=== PATIENT | male | born 1965 | race Caucasian/White ===

== ENCOUNTER 2017-10-16 18:24 | Inpatient (IN) ==
[2017-10-16] MEDS ORDERED: Ondansetron 4 MG/2 ML VIAL IVP ONE (19:18)
[2017-10-16] MEDS ORDERED: 0.9 % Sodium Chloride 1,000 ML IVC ONE ×2 (19:18→19:44)
[2017-10-16] MEDS ORDERED: *HR* HYDROmorphone (PF) 1 MG/ML SYRINGE IVP ONE (19:18)
--- NOTE | 2017-10-16 19:23 | Emergency Department Note ---
Disposition Clinical Impression: Diverticulitis Disposition: Admitted As Inpatient Condition: Good Abdominal Pain HPI - General Chief Complaint: ED Abdominal Pain Stated Complaint: diverticulitis per CT/abd pain/NVD/fevers Time Seen by Provider: 10/16/17 19:02 Source: patient Mode of arrival: ambulatory Limitations: no limitations Nursing Notes Reviewed: Yes Vital Signs Reviewed: Yes - History of Present Illness HPI Narrative: Patient presents for evaluation of abdominal pain. Patient had an outpatient CT scan earlier today showing diverticulitis with perforation and contained abscess. Patient's symptoms started approximately one month ago. Patient has had waxing and waning pain to the lower abdomen. Intermittent episodes of dysuria. Symptoms been progressively worse over the last few days with outpatient physician ordering CT. Patient was notified of CT results and told to come to the emergency department. Pain Scale: 5 - Related Data Previous Rx's Medication Instructions Recorded Acetaminophen w/Cod 300-30 mg 1 each PO Q8HR #20 tablet 01/21/16 [Tylenol w/Codeine #3] Magic Mouthwash [Magic Mouthwash 10 ml PO QID PRN #240 ml 01/21/16 BLM] cephALEXin [Keflex Susp] 10 ml PO Q6HR #400 bottle 01/21/16 Allergies Allergy/AdvReac Type Severity Reaction Status Date / Time No Known Allergies Allergy Verified 10/16/17 18:30 All systems ED: reviewed and negative except as stated. Constitutional: Reports: fever, chills Gastrointestinal: Reports: nausea, constipation. Denies: vomiting Genitourinary: Reports: dysuria Endocrine: Denies: fatigue Abdominal Pain PMH - Past Medical History Medical history: Reports: fibromyalgia, hypertension, other Male Surgical History: Reports: Tonsillectomy Psychiatric history: Reports: no psych history - Social History Smoking status: Never smoker Alcohol use: Reports: none Drug use: Reports: none Physical Exam General appearance: NAD, conversant Eyes: anicteric sclerae, moist conjunctivae; PERRL HENT: Atraumatic; oropharynx clear with moist mucous membranes and no mucosal ulcerations Neck: Normal inspection; Trachea midline; FROM, supple Lungs: CTA, with normal respiratory effort and no intercostal retractions CV: RRR, no MRGs Abdomen: Left lower quadrant and suprapubic tenderness with guarding and rebound. Radiation to the right side. No CVA tenderness. Extremities: No peripheral edema or extremity lymphadenopathy Skin: Normal temperature; no rash, ulcers or lesions Psych: Appropriate mood and affect Neuro: alert and oriented to person, place and time - General Limitations: no limitations General appearance: alert Course - Reevaluation(s) Reevaluation #1: Significant elevated white count. Diverticulitis with perforation and abscess. Patient stable at this time. Antibiotics started. Fluids given. Pain control. Admit to hospitalist. - Consultations Consultation #1: Discussed with Dr. Watts. The patient needs to be placed on antibiotics and admitted to the hospitalist service. He will consult on the patient in the a.m. Consultation #2: Discussed with Dr. Najera. Patient accepted for admission. Vital Signs Temperature 100.4 F H 10/16/17 18:30 Pulse Rate 124 10/16/17 18:30 Respiratory Rate 20 10/16/17 18:30 Blood Pressure 129/79 10/16/17 18:30 O2 Sat by Pulse Oximetry 95 10/16/17 18:30 Temperature 100.4 F H 10/16/17 18:30 Pulse Rate 93 10/16/17 20:34 Respiratory Rate 16 10/16/17 20:34 Blood Pressure 108/73 10/16/17 20:34 O2 Sat by Pulse Oximetry 95 10/16/17 18:30 Oxygen Delivery Oxygen Delivery Room Air Abdominal Pain - Lab Data Result diagrams: 10/16/17 19:00 10/16/17 19:00 Attestation Statement - Attestation Attestation: I examined this patient and my medical decision-making was reviewed with the Resident Physician. I agree with the documented findings, disposition and treatment plan as described except to the extent set forth below. Diverticulitis with perforation. We will admit with general surgery consultation and after initiation of IV antibiotics.
[2017-10-16 19:25] LABS: Basophils % 0.2 %; Eosinophils # 0.1 K/mcL (0.0-0.6); Eosinophils % 0.3 %; Hematocrit 36.9 % (37.5-50.1); Hemoglobin 13.1 g/dL (12.9-16.9); Immature Granulocytes % 0.3 % (0-4); Lymphocytes # 2.3 K/mcL (0.6-4.6); Lymphocytes % 11.4 %; Mean Corpuscular HGB Conc 35.5 g/dL (31.6-35.5); Mean Corpuscular Hemoglobin 30.9 pg (28.0-33.3); Mean Platelet Volume 9.3 fL (9.4-12.4); Monocytes # 1.2 K/mcL (0.0-1.3); Monocytes % 5.8 %; Neutrophils # 16.6 K/mcL (1.6-8.9); Platelet Count 339 K/mcL (140-400); Red Blood Count 4.24 M/mcL (4.19-5.50); Red Cell Distribution Width 12.9 % (11.5-14.5)
[2017-10-16 19:31] LABS: INR 1.4; Prothrombin Time 15.6 Seconds (9.4-12.1)
[2017-10-16 19:39] LABS: Alanine Aminotransferase 14 Units/L (7-52); Albumin 3.9 g/dL (3.5-5.7); Albumin/Globulin Ratio 1.2 (1.1-2.2); Alkaline Phosphatase 68 Units/L (34-104); Aspartate Amino Transferase 11 Units/L (13-39); BUN/Creatinine Ratio 9 (6-26); Bilirubin,Direct 0.1 mg/dL (0.0-0.2); Bilirubin,Indirect 0.8 mg/dL (0.0-1.2); Bilirubin,Total 0.9 mg/dL (0.3-1.0); Blood Urea Nitrogen 9 mg/dL (6-20); Carbon Dioxide 27 mEq/L (23-29); Chloride 95 mEq/L (98-107); Globulin 3.3 g/dL (2.4-3.5); Glucose 99 mg/dL (70-105); Lipase 27 Units/L (11-82); Osmolality,Calculated 273 (280-300); Potassium 2.9 mEq/L (3.5-5.1); Sodium 132 mEq/L (136-145); Total Protein 7.2 g/dL (6.4-8.9); eGFR For African Americans > 60 (> 60); eGFR For Non-African Americans > 60 (> 60)
[2017-10-16 19:43] LABS: Bilirubin,Urine Negative (Negative); Blood,Urine Small (Negative); Clarity,Urine Clear (Clear); Color,Urine Yellow (Yellow); Glucose,Urine (UA) Normal (Normal); Ketones,Urine Negative (Negative); Leukocyte Esterase,Urine Negative (Negative); Nitrite,Urine Negative (Negative); Protein,Urine Trace mg/dL (Neg-Trace); Specific Gravity,Urine > 1.030 (1.010-1.025); Urobilinogen,Urine Normal (Normal)
[2017-10-16] MEDS ORDERED: MetroNIDAZOLE 500 MG/100 ML 500 MG/100 ML BAG IVPB ONE (19:43)
[2017-10-16 19:46] LABS: Bacteria,Urine None Seen per hpf (None-Few); Hyaline Casts,Urine None Seen per lpf (None-Few); Squamous Epithelial Cell,Urine None Seen per lpf (None-Few); WBC,Urine 0-3 per hpf (0-3)
[2017-10-16] MEDS ORDERED: Naloxone 0.4 MG/ML INJ IVP PRN (22:52)
[2017-10-16] MEDS ORDERED: Ondansetron 4 MG/2 ML VIAL IVP PRN (22:52)
[2017-10-16] MEDS ORDERED: *HR* Morphine 2 MG/ML SYRINGE IVP PRN (22:52)
[2017-10-16] MEDS ORDERED: *HR* HYDROmorphone (PF) 1 MG/ML SYRINGE IVP PRN (22:55)
[2017-10-16] MEDS: 0.9 % Sodium Chloride 1,000 ML IVC SCH (23:16)
--- NOTE | 2017-10-16 23:31 | Internal Med History&Physical ---
Date of Encounter: 10/16/17 Time of Encounter: 11:05 Assessment and Plan (1) Acute diverticulitis Current visit: Yes Status: Acute CT findings reported acute diverticulitis with contained performation and abscess Dr. Watts consulted by the ER physician continue IV fluids IV abx (Cipro and Flagyl) NPO at this time pain control anti-emetics support as needed (2) Hypertension Current visit: Yes Status: Chronic BP within acceptable range pt reports of taking his home medications (Lisinopril, Amlodipine). Restart home medications after verification Qualifiers: Hypertension type: essential hypertension Qualified Code(s): I10 - Essential (primary) hypertension (3) Hyperlipidemia Current visit: Yes Status: Chronic continue home meds Qualifiers: Hyperlipidemia type: unspecified Qualified Code(s): E78.5 - Hyperlipidemia , unspecified (4) Symptomatic urinary tract infection Current visit: Yes Status: Acute Given dysuria, will treat with Ciprofloxacin f/u urine culture (5) DVT prophylaxis Current visit: Yes Status: Acute Heparin SQ (6) Hypokalemia Current visit: Yes Status: Acute K supplemented in the ER continue to monitor electrolytes and replace as needed Internal Medicine - H&P: HPI Chief complaint: abdominal pain Admitted From: Home Plans for Post Hospital Care: Home History of present illness: Mr. Dewitt is a 52 year old male with PMH of hypertension, hyperlipidemia, fibromyalgia who presented to the ER for worsening abdominal pain. Pt states he has had sharp abdominal pain localized to the left side for the past month which has been intermittent in nature. He went to see his PCP earlier today and had a CT abd done which reported acute diverticulitis with focal contained performation and abscess, prompting his visit to the ER. ER physician consulted the franchise field consultant surgeon. Pt was started on IV abx, IV fluids, anti-emetics, IV pain meds, and is NPO. Pt reports of feeling better with the pain medications. Denies any fevers or chills. Denies any prior episodes of diverticulitis and has never had a colonoscopy. He also reports of dysuria for the last week, UA negative, however given clinical presentation, will treat for UTI. Social Hx: Former smoker Past Med Surg Social Fam HX - Past Medical History Medical history: fibromyalgia, hypertension, other Psychiatric history: no psych history - Social History Smoking Status: Never smoker Smokeless Tobacco Status: No Alcohol use: none Drug use: none Internal Medicine - H&P: Meds Acetaminophen w/Cod 300-30 mg [Tylenol w/Codeine #3] 1 each PO Q8HR #20 tablet 01/21/16 [Rx] Magic Mouthwash [Magic Mouthwash BLM] 10 ml PO QID PRN #240 ml 01/21/16 [Rx] cephALEXin [Keflex Susp] 10 ml PO Q6HR #400 bottle 01/21/16 [Rx] 3 Allergy/AdvReac Type Severity Reaction Status Date / Time No Known Allergies Allergy Verified 10/16/17 18:30 All Systems PM: A 10-system review of systems was performed and is negative for pertinent findings except as documented above in the HPI. - Constitutional Constitutional: as per HPI - Constitutional Vitals: Temp Pulse Resp BP Pulse Ox 98.6 F 93 16 125/77 90 10/16/17 22:32 10/16/17 22:32 10/16/17 22:32 10/16/17 22:32 10/16/17 22:32 General appearance: Present: A&O X 3, no acute distress, obese, answers questions appropriately - Head Head exam: Present: atraumatic, normocephalic - Eye Eye exam: Present: conjuntiva pink, sclera anicteric - Respiratory Respiratory exam: Present: CTAB. Absent: accessory muscle use, rales, rhonchi, wheezes - Cardiovascular Cardiovascular exam: Present: RRR, +S1, +S2. Absent: diastolic murmur, gallop, rubs, systolic murmur - GI/Abdominal GI/Abdominal exam: Present: normal bowel sounds, soft, no peritoneal signs. Absent: distended, guarding, tenderness - Extremities Exam Extremities exam: Present: warm, radial pulses palpable and symmetrical. Absent : calf tenderness, cyanotic, pedal edema - Neurological Exam Neurological exam: Present: alert, oriented X3 - Psychiatric Psychiatric exam: Present: normal affect, normal mood Internal Med - H&P Results - Labs CBC & Chem 7: 10/16/17 19:00 10/16/17 19:00
[2017-10-17] MEDS: MetroNIDAZOLE 500 MG/100 ML 500 MG/100 ML BAG IVPB SCH ×3 (02:21→17:56)
[2017-10-17] MEDS: *HR* Heparin 5,000 UNIT/ML VIAL SQ SCH ×2 (06:41→17:57)
[2017-10-17 08:00] LABS: BUN/Creatinine Ratio 9 (6-26); Blood Urea Nitrogen 9 mg/dL (6-20); Calcium 8.4 mg/dL (8.6-10.3); Carbon Dioxide 26 mEq/L (23-29); Chloride 101 mEq/L (98-107); Glucose 81 mg/dL (70-105); Magnesium 1.7 mg/dL (1.6-2.6); Osmolality,Calculated 282 (280-300); Phosphorous 2.6 mg/dL (2.7-4.5); Sodium 137 mEq/L (136-145); eGFR For African Americans > 60 (> 60); eGFR For Non-African Americans > 60 (> 60)
[2017-10-17 08:22] LABS: Basophils % 0.3 %; Eosinophils # 0.1 K/mcL (0.0-0.6); Eosinophils % 0.6 %; Hemoglobin 11.8 g/dL (12.9-16.9); Immature Granulocytes % 0.3 % (0-4); Lymphocytes # 2.2 K/mcL (0.6-4.6); Mean Corpuscular HGB Conc 34.7 g/dL (31.6-35.5); Mean Corpuscular Hemoglobin 30.9 pg (28.0-33.3); Mean Platelet Volume 9.7 fL (9.4-12.4); Monocytes # 1.1 K/mcL (0.0-1.3); Monocytes % 7.5 %; Neutrophils # 11.1 K/mcL (1.6-8.9); Platelet Count 299 K/mcL (140-400); Red Blood Count 3.82 M/mcL (4.19-5.50); Segmented Neutrophils % 76.3 %
--- NOTE | 2017-10-17 08:31 | Internal Med Progress Note ---
Date of Encounter: 10/17/17 Time of Encounter: 08:29 - Assessment and plan (1) Acute diverticulitis Current Visit: Yes Status: Acute Assessment and plan: Acute diverticulitis with perforation with abscess: Surgery consulted and recommend supportive care, continued NPO status and antibiotics for now allowing inflammation to subside rather than acute surgical intervention. Surgery consult appreciated. (2) Symptomatic urinary tract infection Current Visit: Yes Status: Acute (3) Hypertension Current Visit: Yes Status: Chronic Assessment and plan: While NPO add PRN IV Hydralazine. Qualifiers: Hypertension type: essential hypertension Qualified Code(s): I10 - Essential (primary) hypertension (4) Hypokalemia Current Visit: Yes Status: Acute Assessment and plan: Replace potassium as needed and check Mag. Code(s): E87.6 - Hypokalemia - Time Spent With Patient Greater than 35 minutes - Subjective Interval history: Relatively healthy 52 yr old man with 3-4 week h/o abdominal pain and diarrhea. CT-scan showed diverticulitis with perforation and abscess. Pain controlled this am. No N/V/D. - Constitutional Vitals: Temp Pulse Resp BP Pulse Ox 98.5 F 85 16 99/58 92 10/17/17 04:36 10/17/17 04:36 10/17/17 04:36 10/17/17 04:36 10/17/17 04:36 General appearance: Present: A&O X 3, no acute distress, obese, answers questions appropriately Internal Medicine: Result - Labs CBC & Chem 7: 10/17/17 05:44 10/17/17 15:51 Labs: Short CBC 10/17/17 Range/Units 05:44 WBC 14.5 H (4.3-11.1) K/mcL Hgb 11.8 L (12.9-16.9) g/dL Hct 34.0 L (37.5-50.1) % Plt Count 299 (140-400) K/mcL Neutrophils # 11.1 H (1.6-8.9) K/mcL BMP 10/17/17 05:44 Sodium 137 Potassium 3.0 L Chloride 101 Carbon Dioxide 26 BUN 9 Creatinine 0.99 Glucose 81 Calcium 8.4 L - ABG Interpretation ABG results: PT/INR, D-dimer PT 15.6 Seconds (9.4-12.1) H 10/16/17 19:00 Consult Discharge Plan - Plan Referrals: Marilyn Quijano MD [Primary Care Provider] -
[2017-10-17] MEDS: 0.9 % Sodium Chloride 1,000 ML IVC SCH (08:43)
--- NOTE | 2017-10-17 14:38 | General Surgery Consult Note ---
Date of Encounter: 10/17/17 Time of Encounter: 12:05 History of Present Illness Consult date: 10/16/17 Reason for consult: abdominal pain (Acute perforated diverticulitis with pericolic abscess) Requesting physician: Sukumar Saleh History of present illness: 52-year-old male for the surgical services after presenting to [facility] Emergency Department with a month-long history of abdominal pain. CT of the abdomen and pelvis demonstrated sigmoid diverticulitis with perforation and a contained abscess just cephalad to the bladder. White count 20,200 with 16.6% neutrophils. Other significant lab work potassium was notably low at 2.9. The patient has been admitted for IV antibiotics with surgical consultation. 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 He has never smoked. Family history: Noncontributory Physical examination: Age-appropriate male resting comfortably in his hospital bed. Patient dictates he is feeling better since his admission with diminished abdominal pain. He is 1.7 m tall, 86.27 kg with a BMI of 28.9. The patient has been afebrile, maximum temperature 99.0; pulse 7985, respirations 16, blood pressure 99/66. SPO2 on room air 93%. Skin: Warm, no obvious jaundice Lungs: Clear to auscultation, no obvious pain on deep inspiration Cardiac: Regular rate, no appreciable murmurs Abdomen: Soft, tender in the left lower quadrant and suprapubic abdomen. No discernible intra-abdominal masses, no rebound. Hypoactive bowel sounds. Extremities: No obvious clubbing, cyanosis, or edema laboratories: White count is improved to 14.5 since presentation; hemoglobin 11.8 with hematocrit 34.0 (on presentation hemoglobin was 13.1 hematocrit 36.9) The diminished H&H is consistent with IV hydration Electrolytes notable for persistent hypokalemia at 3.0, BUN and creatinine within normal limits. Phosphorus is also low at 2.6. LFTs on presentation were within normal limits - not repeated CT abdomen and pelvis: Reviewed with [facility] Impression: 52-year-old male admitted to [facility] after presenting to the emergency room with a month-long history of progressive abdominal pain. Patient has acute diverticulitis with perforation and a contained pericolic abscess cephalad to the urinary bladder. The patient is currently in no acute distress and appears to have responded to IV fluids, pain medications and IV antibiotics. Treatment options include immediate surgical intervention with significant likelihood of Charles procedure (end colostomy). Alternatively, it may be possible to defer surgery, allowing the acute inflammatory changes to subside or be controlled and complete a delayed primary resection of the sigmoid colon. I have discussed this at length with the patient. He is willing to defer surgery as long as he remains clinically stable. He understands risks of deferring surgery include worsening abdominal pain, peritonitis, enlarging abscess as well as potential erosion of the abscess into adjacent structures. Plan: Maintain NPO until abdominal pain completely resolved (patient aware); IV fluids and IV antibiotics I will follow along with you examined the patient at least daily and make further recommendations based on the patient's status. Thank you for this consultation Past Med Surg Social Fam HX - Past Medical History Medical history: fibromyalgia, hyperlipidemia, hypertension, other Psychiatric history: no psych history - Social History Smoking Status: Never smoker Smokeless Tobacco Status: No Alcohol use: none Drug use: none Medications and Allergies Acetaminophen w/Cod 300-30 mg [Tylenol w/Codeine #3] 1 each PO Q8HR #20 tablet 01/21/16 [Rx] Magic Mouthwash [Magic Mouthwash BLM] 10 ml PO QID PRN #240 ml 01/21/16 [Rx] cephALEXin [Keflex Susp] 10 ml PO Q6HR #400 bottle 01/21/16 [Rx] Ciprofloxacin [Cipro] 500 mg PO BID 10/17/17 [History] Lisinopril DAILY 10/17/17 [History] Simvastatin DAILY 10/17/17 [History] Tramadol HCl [Ultram] 50 mg PO QID PRN 10/17/17 [History] amLODIPine DAILY 10/17/17 [History] metroNIDAZOLE [Metronidazole] 500 mg PO Q8HR 10/17/17 [History] 3 Allergy/AdvReac Type Severity Reaction Status Date / Time No Known Allergies Allergy Verified 10/16/17 18:30 Review of Systems All systems PM: A 10-system review of systems was performed and is negative for pertinent findings except as documented above in the HPI. General Surgery Exam Initial Vital Signs Temp Pulse Resp BP Pulse Ox 100.4 F H 124 20 129/79 95 10/16/17 18:30 10/16/17 18:30 10/16/17 18:30 10/16/17 18:30 10/16/17 18:30 Exam Initial Vital Signs Temp Pulse Resp BP Pulse Ox 100.4 F H 124 20 129/79 95 10/16/17 18:30 10/16/17 18:30 10/16/17 18:30 10/16/17 18:30 10/16/17 18:30 Results - Labs 10/17/17 05:44 10/17/17 05:44 Abnormal lab results WBC 14.5 K/mcL (4.3-11.1) H 10/17/17 05:44 RBC 3.82 M/mcL (4.19-5.50) L 10/17/17 05:44 Hgb 11.8 g/dL (12.9-16.9) L 10/17/17 05:44 Hct 34.0 % (37.5-50.1) L 10/17/17 05:44 Neutrophils # 11.1 K/mcL (1.6-8.9) H 10/17/17 05:44 PT 15.6 Seconds (9.4-12.1) H 10/16/17 19:00 Potassium 3.0 mEq/L (3.5-5.1) L 10/17/17 05:44 POC Glucose 100 (58-89) H 10/17/17 12:16 Calcium 8.4 mg/dL (8.6-10.3) L 10/17/17 05:44 Phosphorus 2.6 mg/dL (2.7-4.5) L 10/17/17 05:44 AST 11 Units/L (13-39) L 10/16/17 19:00 Ur Specific [place] > 1.030 (1.010-1.025) H 10/16/17 19:30 Urine Blood Small (Negative) H 10/16/17 19:30 Urine Microscopic RBC 5-15 per hpf (0-3) H 10/16/17 19:30 Diabetes panel 10/17/17 Range/Units 05:44 Sodium 137 (136-145) mEq/L Potassium 3.0 L (3.5-5.1) mEq/L Chloride 101 (98-107) mEq/L Carbon Dioxide 26 (23-29) mEq/L BUN 9 (6-20) mg/dL Creatinine 0.99 (0.70-1.30) mg/dL Glucose 81 (70-105) mg/dL Calcium 8.4 L (8.6-10.3) mg/dL Calcium panel 10/17/17 Range/Units 05:44 Calcium 8.4 L (8.6-10.3) mg/dL Phosphorus 2.6 L (2.7-4.5) mg/dL Pituitary panel 10/17/17 Range/Units 05:44 Sodium 137 (136-145) mEq/L Potassium 3.0 L (3.5-5.1) mEq/L Chloride 101 (98-107) mEq/L Carbon Dioxide 26 (23-29) mEq/L BUN 9 (6-20) mg/dL Creatinine 0.99 (0.70-1.30) mg/dL Glucose 81 (70-105) mg/dL Calcium 8.4 L (8.6-10.3) mg/dL Adrenal panel 10/17/17 Range/Units 05:44 Sodium 137 (136-145) mEq/L Potassium 3.0 L (3.5-5.1) mEq/L Chloride 101 (98-107) mEq/L Carbon Dioxide 26 (23-29) mEq/L BUN 9 (6-20) mg/dL Creatinine 0.99 (0.70-1.30) mg/dL Glucose 81 (70-105) mg/dL Calcium 8.4 L (8.6-10.3) mg/dL All other labs normal. Consult Discharge Plan - Plan Referrals: Marilyn Quijano MD [Primary Care Provider] -
[2017-10-18] MEDS ORDERED: Acetaminophen 325 MG TABLET PO ONE (00:13)
[2017-10-18] MEDS: 0.9 % Sodium Chloride 1,000 ML IVC SCH ×2 (01:45→17:30)
[2017-10-18] MEDS: MetroNIDAZOLE 500 MG/100 ML 500 MG/100 ML BAG IVPB SCH ×3 (02:08→17:28)
[2017-10-18] MEDS: *HR* Heparin 5,000 UNIT/ML VIAL SQ SCH ×2 (05:34→17:29)
[2017-10-18 07:25] LABS: Basophils # 0.1 K/mcL (0.0-0.2); Basophils % 0.5 %; Eosinophils # 0.1 K/mcL (0.0-0.6); Eosinophils % 1.2 %; Hematocrit 35.1 % (37.5-50.1); Hemoglobin 12.1 g/dL (12.9-16.9); Immature Granulocytes % 0.3 % (0-4); Lymphocytes # 1.7 K/mcL (0.6-4.6); Lymphocytes % 18.7 %; Mean Corpuscular HGB Conc 34.5 g/dL (31.6-35.5); Mean Corpuscular Hemoglobin 30.9 pg (28.0-33.3); Mean Corpuscular Volume 89.5 fL (83.0-100.0); Mean Platelet Volume 9.6 fL (9.4-12.4); Monocytes # 0.7 K/mcL (0.0-1.3); Monocytes % 7.6 %; Neutrophils # 6.7 K/mcL (1.6-8.9); Platelet Count 290 K/mcL (140-400); Red Blood Count 3.92 M/mcL (4.19-5.50); Red Cell Distribution Width 12.6 % (11.5-14.5); Segmented Neutrophils % 71.7 %
[2017-10-18 07:43] LABS: BUN/Creatinine Ratio 12 (6-26); Blood Urea Nitrogen 11 mg/dL (6-20); Calcium 8.6 mg/dL (8.6-10.3); Carbon Dioxide 26 mEq/L (23-29); Chloride 107 mEq/L (98-107); Glucose 79 mg/dL (70-105); Osmolality,Calculated 292 (280-300); Potassium 3.6 mEq/L (3.5-5.1); Sodium 142 mEq/L (136-145); eGFR For African Americans > 60 (> 60); eGFR For Non-African Americans > 60 (> 60)
--- NOTE | 2017-10-18 10:01 | Internal Med Progress Note ---
Date of Encounter: 10/18/17 Time of Encounter: 10:00 - Assessment and plan (1) Acute diverticulitis Current Visit: Yes Status: Acute Assessment and plan: Acute diverticulitis with perforation with abscess: Surgery will discuss the patient's clinical staus with interventional radiology concerning possible percutaneous drainage of abscess. After resolution of the acute inflammation a possible surgery. (2) Symptomatic urinary tract infection Current Visit: Yes Status: Acute (3) Hypertension Current Visit: Yes Status: Chronic Qualifiers: Hypertension type: essential hypertension Qualified Code(s): I10 - Essential (primary) hypertension (4) Hypokalemia Current Visit: Yes Status: Acute Code(s): E87.6 - Hypokalemia - Subjective Interval history: Relatively healthy 52 yr old man with 3-4 week h/o abdominal pain and diarrhea. CT-scan showed diverticulitis with perforation and abscess. Pain controlled this am. No N/V/D. This morning his pain is minimal and he does not report N/V/D. - Constitutional Vitals: Temp Pulse Resp BP Pulse Ox 97.9 F 79 18 128/89 98 10/18/17 06:56 10/18/17 06:56 10/18/17 06:56 10/18/17 06:56 10/18/17 06:56 General appearance: Present: A&O X 3, no acute distress, obese, answers questions appropriately - Head Head exam: Present: atraumatic, normocephalic - Eye Eye exam: Present: EOMI, PERRL Pupils: Present: PERRL - ENT ENT exam: Present: mucous membranes moist, normal exam, normal oropharynx - Neck Neck exam general surgery: Present: supple, trachea midline. Absent: tenderness , nuchal rigidity, thyromegaly - Respiratory Respiratory exam: Present: CTAB. Absent: rales, rhonchi, stridor - Cardiovascular Cardiovascular exam: Present: RRR, +S1, +S2. Absent: JVD, rubs - GI/Abdominal GI/Abdominal exam: Present: normal bowel sounds. Absent: diminished bowel sounds, guarding, hepatomegaly, rebound, rigid, splenomegaly - Psychiatric Psychiatric exam: Present: normal affect, normal mood Internal Medicine: Result - Labs CBC & Chem 7: 10/18/17 06:52 10/18/17 06:52 Labs: Short CBC 10/18/17 Range/Units 06:52 WBC 9.3 (4.3-11.1) K/mcL Hgb 12.1 L (12.9-16.9) g/dL Hct 35.1 L (37.5-50.1) % Plt Count 290 (140-400) K/mcL Neutrophils # 6.7 (1.6-8.9) K/mcL BMP 10/18/17 06:52 Sodium 142 Potassium 3.6 Chloride 107 Carbon Dioxide 26 BUN 11 Creatinine 0.89 Glucose 79 Calcium 8.6 - ABG Interpretation ABG results: PT/INR, D-dimer PT 15.6 Seconds (9.4-12.1) H 10/16/17 19:00 Consult Discharge Plan - Plan Referrals: Marilyn Quijano MD [Primary Care Provider] -
--- NOTE | 2017-10-18 11:22 | General Surgery Progress Note ---
Date of Encounter: 10/18/17 Time of Encounter: 11:15 Subjective Patient reports: feels better, pain is less Narrative: General Surgery - patient feeling much improved; he indicates resolution of his abdominal pain. Voicing no other complaints. The patient has remained afebrile, most recently 97.9; pulse 79, respirations 18, blood pressure 128/89. Lungs: Clear to auscultation, no obvious abdominal pain with deep inspiration Abdomen: Soft, nontender. No discernible intra-abdominal masses. No rebound. Prior findings of suprapubic and left lower quadrant abdominal tenderness no longer evident. Active bowel sounds. Laboratories: White count 9.3, hemoglobin 12.1, hematocrit 35.1, platelet count 290,000; differential has returned to normal Impression/Plan: A 52-year-old male with acute diverticulitis with perforation and the contained pericolic abscess cephalad to the urinary bladder. The abdominal pain has resolved as has the patient's leukocytosis and neutrophilia. The patient has demonstrated a satisfactory response to IV antibiotics. Will allow clear liquid diet and monitor for recurrent abd pain. Will discuss the patient's clinical staus with interventional radiology in the a.m. to consider percutaneous drainage of the pericolic abscess.This may allow continued medical management of the acute diverticulitis until resolution of the acute inflammation at which time interval sigmoid colectomy with primary resection can be completed Objective Vital Signs - Last 8 Hours Temp Pulse Resp BP Pulse Ox 10/18/17 06:56 97.9 F 79 18 128/89 98 10/18/17 05:32 97.5 F L 64 16 100/67 95 Intake and Output 10/17/17 10/18/17 10/18/17 23:59 07:59 15:59 Intake Total 300 / 300 1050 / 1050 Output Total 900 / 900 100 / 100 Balance -600 / -600 950 / 950 Intake: IV Fluids 300 / 300 1050 / 1050 0.9 % Sodium Chloride 1,000 ML 950 / 950 @ 100 mls/hr IVC .Q10H [facility] Rx#: [id number] Cipro Premix 400 MG/200 ML 400 200 / 200 mg In 200 ml @ 200 mls/hr IVPB Q12H [facility] Rx#:[id number] Flagyl Premix 500 MG/100 ML 500 100 / 100 100 / 100 mg In 100 ml @ 100 mls/hr IVPB Q8H [facility] Rx#:[id number] Output: Urine 900 / 900 100 / 100 Other: Meal NPO Blood Glucose* 83 - Labs 10/18/17 06:52 10/18/17 06:52 Diabetes panel 10/18/17 Range/Units 06:52 Sodium 142 (136-145) mEq/L Potassium 3.6 (3.5-5.1) mEq/L Chloride 107 (98-107) mEq/L Carbon Dioxide 26 (23-29) mEq/L BUN 11 (6-20) mg/dL Creatinine 0.89 (0.70-1.30) mg/dL Glucose 79 (70-105) mg/dL Calcium 8.6 (8.6-10.3) mg/dL Calcium panel 10/18/17 10/18/17 Range/Units 06:52 06:52 Calcium 8.6 (8.6-10.3) mg/dL Phosphorus 2.8 (2.7-4.5) mg/dL Pituitary panel 10/18/17 Range/Units 06:52 Sodium 142 (136-145) mEq/L Potassium 3.6 (3.5-5.1) mEq/L Chloride 107 (98-107) mEq/L Carbon Dioxide 26 (23-29) mEq/L BUN 11 (6-20) mg/dL Creatinine 0.89 (0.70-1.30) mg/dL Glucose 79 (70-105) mg/dL Calcium 8.6 (8.6-10.3) mg/dL Adrenal panel 10/18/17 Range/Units 06:52 Sodium 142 (136-145) mEq/L Potassium 3.6 (3.5-5.1) mEq/L Chloride 107 (98-107) mEq/L Carbon Dioxide 26 (23-29) mEq/L BUN 11 (6-20) mg/dL Creatinine 0.89 (0.70-1.30) mg/dL Glucose 79 (70-105) mg/dL Calcium 8.6 (8.6-10.3) mg/dL Consult Discharge Plan - Plan Referrals: Marilyn Quijano MD [Primary Care Provider] -
[2017-10-19] MEDS: MetroNIDAZOLE 500 MG/100 ML 500 MG/100 ML BAG IVPB SCH ×3 (01:54→16:36)
[2017-10-19] MEDS ORDERED: Acetaminophen 325 MG TABLET PO ONE (01:58)
[2017-10-19 04:57] LABS: INR 1.4; Prothrombin Time 15.7 Seconds (9.4-12.1)
[2017-10-19] MEDS: *HR* Heparin 5,000 UNIT/ML VIAL SQ SCH ×2 (05:13→16:40)
--- NOTE | 2017-10-19 12:01 | General Surgery Progress Note ---
Date of Encounter: 10/19/17 Time of Encounter: 11:30 Subjective Patient reports: feels better Narrative: General Surgery - patient feeling well, voicing no complaints. Abdominal pain resolved; patient tolerating clear liquids without nausea vomiting or recurrent abdominal pain. Patient is afebrile, 98.1; pulse 68, respirations 17, blood pressure 109/68 ( stable) Abdomen: Soft, nontender. No obvious intra-abdominal masses. No rebound. Reviewed CT with Dr Valle, Inteventional Radiology. The va-colic abscess located cephalad to the urinary bladder is amenable to percutaneous drainage. Consultation has been placed for this procedure later today. The patient will be NPO for the procedure. Impression: A 52-year-old male with acute perforated sigmoid diverticulitis with pericolic abscess. Excellent response to IV antibiotics. Abdominal pain relieved Plan: Percutaneous drainage of the pericolic abscess If able to control the pericolic abscess as well as the sigmoid diverticulitis - it appears likely to defer surgery until the acute inflammatory changes have subsided to allow maximum opportunity to complete a primary resection in 4-6 weeks. This is been discussed with the patient. He expressed understanding and is willing to proceed with the treatment plan as outlined. Objective Vital Signs - Last 8 Hours Temp Pulse Resp BP Pulse Ox 10/19/17 11:53 98.1 F 68 17 109/68 98 10/19/17 09:31 96 10/19/17 07:28 98.3 F 71 17 111/72 96 Intake and Output 10/18/17 10/19/17 10/19/17 23:59 07:59 15:59 Intake Total 700 / 700 300 / 300 200 / 200 Output Total 350 / 350 500 / 500 Balance 350 / 350 -200 / -200 200 / 200 Intake: IV Fluids 100 / 100 300 / 300 200 / 200 Cipro Premix 400 MG/200 ML 400 200 / 200 200 / 200 mg In 200 ml @ 200 mls/hr IVPB Q12H [facility] Rx#:[id number] Flagyl Premix 500 MG/100 ML 500 100 / 100 100 / 100 mg In 100 ml @ 100 mls/hr IVPB Q8H [facility] Rx#:[id number] Oral 600 / 600 Output: Urine 350 / 350 500 / 500 Other: Meal Clears Percent of Meal Consumed 0% Stool Size Large Stool Color Green Weight 86.9 kg Patient Weight 10/19/17 23:59 Weight 86.9 kg - Labs 10/18/17 06:52 10/18/17 06:52 Consult Discharge Plan - Plan Referrals: Marilyn Quijano MD [Primary Care Provider] -
[2017-10-19] MEDS ORDERED: *HR* Midazolam HCl 2 MG/2 ML VIAL IVP ONE (13:38)
[2017-10-19] MEDS ORDERED: *HR* FentaNYL (PF) 100 MCG/2 ML VIAL IVP ONE (13:38)
--- NOTE | 2017-10-19 13:40 | Pre-Sedation Evaluation ---
Pre-sedation evaluation - Pre-sedation checklist Date of procedure: 10/19/17 Procedure: drain Recent Vitals: Last Vital Signs Temp 98.1 F 10/19/17 11:53 Pulse 68 10/19/17 11:53 Resp 17 10/19/17 11:53 BP 109/68 10/19/17 11:53 Pulse Ox 98 10/19/17 11:53 Previous reaction to sedatives/anesthetics: No Dietary Status: Clear fluids after Midnight Airway Assessment: Patient can open mouth completely, TMJ function normal, Micrognathia (under-bite, receding chin) absent, Neck with adequate range of motion Possible difficult airway: No ASA Classification *see protocol: CLASS II-Mild systemic disease Plan of Care: Pt appropriate candidate for procedure/moderate/conscious sedation , Risks/benefits of procedure/sedation discussed w/ patient/family, If not NPO; Risk of intake outweiged by necessity to perform procedure
[2017-10-19] MEDS ORDERED: 0.9 % Sodium Chloride 500 ML ONE (13:46)
--- NOTE | 2017-10-19 14:06 | IR Procedure Note ---
Date of procedure: 10/19/17 Consent Obtained: Written consent Timeout: Correct patient and procedure verified, Correct site verified, Time out performed, Skin prep completed Indications: abscess Procedure Performed: drain Was there an patient support assistant present: Yes Transfer And Pumphouse Operator Chief: Glenn Phillips Site/Technique: 14F drain under CT Results/Findings: 20cc pus removed, sent for cultures Estimated blood loss (cc): 0 Complications: None; Tolerated procedure well Post Procedure Treatment Plan: dc to floor Specimen: 20cc pus
[2017-10-19] MEDS ORDERED: *HR* Morphine 2 MG/ML SYRINGE IVP PRN (15:03)
[2017-10-19] MEDS: 0.9 % Sodium Chloride 1,000 ML IVC SCH (16:34)
--- NOTE | 2017-10-19 19:54 | Internal Med Progress Note ---
Date of Encounter: 10/19/17 Time of Encounter: 19:52 (seen earlier this afternoon) - Assessment and plan (1) Acute diverticulitis Current Visit: Yes Status: Acute (2) Symptomatic urinary tract infection Current Visit: Yes Status: Acute (3) Hypertension Current Visit: Yes Status: Chronic Qualifiers: Hypertension type: essential hypertension Qualified Code(s): I10 - Essential (primary) hypertension (4) Hypokalemia Current Visit: Yes Status: Acute Code(s): E87.6 - Hypokalemia - Subjective Interval history: Relatively healthy 52 yr old man with 3-4 week h/o abdominal pain and diarrhea. CT-scan showed diverticulitis with perforation and abscess. Pain controlled this am. No N/V/D. This morning his pain is minimal and he does not report N/V/D. IR drainage today. Tolerated procedure well without complications. Pain controlled. Physical exam: Gen: A&O x2 in no acute distress HEENT: Head is atraumatic and normocephalic. PERRLA, EOM-full No scleral icterus. No oral or perioral lesions. Neck: No JVD, Thyroid is ML without thyromegally or nodules. No cervical LAD CV: RRR with regular rhythm Lungs: CTAB No wheezing, rales or rhonchi Abdomen: Soft , nondistended, nontender, NL BS all 4 quads w/o RBT or gaurding. Drain in place Extremities: Nl distal pulses. Skin: warm and dry without rashes. Neruo: No obvious focal deficits noted. Labs: See below A/P: Acute perforated sigmoid diverticulitis with pericolic abscess: Continue Cipro and Flagyl. IR performed percutaneous drainage and placed drain today. Surgery following and feel he can likely defer surgery until the acute inflammatory changes have subsided. Possible resection in 4-6 weeks. Appreciate surgery assistance. >30 minutes spent - Constitutional Vitals: Temp Pulse Resp BP Pulse Ox 98.3 F 77 16 130/85 95 10/19/17 19:14 10/19/17 19:14 10/19/17 19:14 10/19/17 19:14 10/19/17 19:14 General appearance: Present: A&O X 3, no acute distress, obese, answers questions appropriately Internal Medicine: Result - Labs CBC & Chem 7: 10/18/17 06:52 10/18/17 06:52 - ABG Interpretation ABG results: PT/INR, D-dimer PT 15.7 Seconds (9.4-12.1) H 10/19/17 04:20 - Impressions Impressions Needle Aspiration CT 10/19/17 00:00 IMPRESSION: Successful CT guided placement of diverticular pelvic abscess drainage catheter. D/ / 10/19/2017 15:29:36 Denice Valle MD / [facility] Interpreting Provider: Denice Valle MD Consult Discharge Plan - Plan Referrals: Marilyn Quijano MD [Primary Care Provider] -
[2017-10-20] MEDS: MetroNIDAZOLE 500 MG/100 ML 500 MG/100 ML BAG IVPB SCH ×3 (02:32→17:47)
[2017-10-20] MEDS ORDERED: Acetaminophen 325 MG TABLET PO PRN ×2 (03:07→14:31)
[2017-10-20] MEDS: 0.9 % Sodium Chloride 1,000 ML IVC SCH (06:37)
[2017-10-20] MEDS: *HR* Heparin 5,000 UNIT/ML VIAL SQ SCH ×2 (06:38→17:48)
[2017-10-20 09:50] LABS: Basophils % 0.4 %; Eosinophils # 0.1 K/mcL (0.0-0.6); Hematocrit 35.1 % (37.5-50.1); Hemoglobin 12.3 g/dL (12.9-16.9); Immature Granulocytes % 0.4 % (0-4); Lymphocytes # 1.5 K/mcL (0.6-4.6); Lymphocytes % 14.2 %; Mean Corpuscular Hemoglobin 30.8 pg (28.0-33.3); Mean Corpuscular Volume 87.8 fL (83.0-100.0); Mean Platelet Volume 9.4 fL (9.4-12.4); Monocytes # 0.7 K/mcL (0.0-1.3); Monocytes % 6.5 %; Neutrophils # 8.2 K/mcL (1.6-8.9); Platelet Count 328 K/mcL (140-400); Red Cell Distribution Width 12.6 % (11.5-14.5); Segmented Neutrophils % 77.5 %
[2017-10-20 11:26] LABS: BUN/Creatinine Ratio 4 (6-26); Blood Urea Nitrogen 4 mg/dL (6-20); Calcium 8.7 mg/dL (8.6-10.3); Carbon Dioxide 23 mEq/L (23-29); Chloride 108 mEq/L (98-107); Glucose 159 mg/dL (70-105); Osmolality,Calculated 286 (280-300); Potassium 3.4 mEq/L (3.5-5.1); Sodium 138 mEq/L (136-145); eGFR For African Americans > 60 (> 60); eGFR For Non-African Americans > 60 (> 60)
--- NOTE | 2017-10-20 14:41 | General Surgery Progress Note ---
Date of Encounter: 10/20/17 Time of Encounter: 14:32 Subjective Patient reports: tolerating liquids well Narrative: General Surgery - Hospital Day #4 Patient complaining of a headache. The patient describes a history of frequent headaches. Otherwise, he feels well. He denies any abdominal pain. Patient is tolerating clear liquids without increased abdominal pain, nausea or vomiting The patient continues to be afebrile, currently 98.3; pulse 77, respirations 16, blood pressure 122/79. Lungs: Clear; no abdominal pain with deep inspiration Abdomen: Soft, nontender. Diarrheal bowel movements noted. The diarrhea is likely due to the inflammation related to the acute perforated sigmoid diverticulitis. The patient tolerated percutaneous drainage of a midline pericolic abscess completed by interventional radiology. Culture results of that drainage procedure are pending. Wound drainage approximately 8 mL. Laboratories: White count stable at 10.5; hemoglobin 12.3 with hematocrit 35.1; differential within normal limits. Electrolytes, BUN, creatinine notable for hypokalemia, 3.4 Impression: A 52-year-old with left lower quadrant abdominal pain secondary to acute perforated sigmoid diverticulitis and pericolic abscess. Patient is responding to IV antibiotics for resolution of his abdominal pain and leukocytosis. Status post percutaneous drainage of the pericolic abscess. Cultures pending Plan: Advance to full liquids Monitor for increased/recurrent abdominal pain or increased percutaneous drainage If the patient remains stable, can consider changing IV antibiotics to oral in the a.m. Objective Vital Signs - Last 8 Hours Temp Pulse Resp BP Pulse Ox 10/20/17 11:00 98.3 F 77 16 122/79 96 10/20/17 07:15 98.3 F 69 16 121/78 96 Intake and Output 10/19/17 10/20/17 10/20/17 23:59 07:59 15:59 Intake Total 900 / 900 1340 / 1340 560 / 560 Output Total 510 / 510 1358 / 1358 1600 / 1600 Balance 390 / 390 -18 / -18 -1040 / -1040 Intake: IV Fluids 300 / 300 1100 / 1100 200 / 200 0.9 % Sodium Chloride 1,000 ML 1000 / 1000 @ 75 mls/hr IVC .[id number] [facility] Rx #:[id number] Cipro Premix 400 MG/200 ML 400 200 / 200 200 / 200 mg In 200 ml @ 200 mls/hr IVPB Q12H [facility] Rx#:[id number] Flagyl Premix 500 MG/100 ML 500 100 / 100 100 / 100 mg In 100 ml @ 100 mls/hr IVPB Q8H [facility] Rx#:[id number] Oral 600 / 600 240 / 240 360 / 360 Output: Urine 500 / 500 1350 / 1350 1600 / 1600 Right Nephrostomy Wound Drainage Lower Abdomen Other: Meal Dinner Breakfast Percent of Meal Consumed 0% 100% Stool Size Small Small Stool Consistency loose liquid Stool Characteristics Normal for Patient [place] Stool Color Brown Brown # Voids 1 # Bowel Movements 3 - Labs 10/20/17 09:32 10/20/17 09:56 Diabetes panel 10/20/17 Range/Units 09:56 Sodium 138 (136-145) mEq/L Potassium 3.4 L (3.5-5.1) mEq/L Chloride 108 H (98-107) mEq/L Carbon Dioxide 23 (23-29) mEq/L BUN 4 L (6-20) mg/dL Creatinine 0.91 (0.70-1.30) mg/dL Glucose 159 H (70-105) mg/dL Calcium 8.7 (8.6-10.3) mg/dL Calcium panel 10/20/17 Range/Units 09:56 Calcium 8.7 (8.6-10.3) mg/dL Pituitary panel 10/20/17 Range/Units 09:56 Sodium 138 (136-145) mEq/L Potassium 3.4 L (3.5-5.1) mEq/L Chloride 108 H (98-107) mEq/L Carbon Dioxide 23 (23-29) mEq/L BUN 4 L (6-20) mg/dL Creatinine 0.91 (0.70-1.30) mg/dL Glucose 159 H (70-105) mg/dL Calcium 8.7 (8.6-10.3) mg/dL Adrenal panel 10/20/17 Range/Units 09:56 Sodium 138 (136-145) mEq/L Potassium 3.4 L (3.5-5.1) mEq/L Chloride 108 H (98-107) mEq/L Carbon Dioxide 23 (23-29) mEq/L BUN 4 L (6-20) mg/dL Creatinine 0.91 (0.70-1.30) mg/dL Glucose 159 H (70-105) mg/dL Calcium 8.7 (8.6-10.3) mg/dL Consult Discharge Plan - Plan Referrals: Marilyn Quijano MD [Primary Care Provider] -
--- NOTE | 2017-10-20 15:24 | Internal Med Progress Note ---
Date of Encounter: 10/20/17 Time of Encounter: 11:00 - Assessment and plan (1) Acute diverticulitis Current Visit: Yes Status: Acute Assessment and plan: -Patient with left lower quadrant abdominal pain secondary to acute perforated sigmoid diverticulitis and pericolic abscess. -CT of abdomen/pelvis showed acute diverticulitis, with focal contained perforation resulting in 4 cm abscess of the anterior pelvis. -Gen. surgery following status post percutaneous drainage pericolic abscess; cultures pending -We will continue IV Cipro/Flagyl until culture sensitivities no known (2) Hypokalemia Current Visit: Yes Status: Acute Assessment and plan: Potassium 3.4 -Continue to monitor; replacements as needed (3) Hypertension Current Visit: Yes Status: Chronic Assessment and plan: -Blood pressure medicines currently being held; continue PRN IV Hydralazine. Qualifiers: Hypertension type: essential hypertension Qualified Code(s): I10 - Essential (primary) hypertension (4) Hyperlipidemia Current Visit: Yes Status: Chronic Assessment and plan: -Continue statin Qualifiers: Hyperlipidemia type: unspecified Qualified Code(s): E78.5 - Hyperlipidemia , unspecified (5) DVT prophylaxis Current Visit: Yes Status: Acute Assessment and plan: -Heparin subcutaneous - Subjective Interval history: Patient reports improvement in abdominal discomfort after placement of percutaneous drainage per surgery on 10/19/17 in addition to IV antibiotics. - Constitutional Vitals: Temp Pulse Resp BP Pulse Ox 98.3 F 77 16 122/79 96 10/20/17 11:00 10/20/17 11:00 10/20/17 11:00 10/20/17 11:00 10/20/17 11:00 General appearance: Present: A&O X 3, no acute distress, obese, answers questions appropriately - Respiratory Respiratory exam: Present: CTAB. Absent: accessory muscle use, rales, rhonchi, wheezes - Cardiovascular Cardiovascular exam: Present: RRR, +S1, +S2. Absent: diastolic murmur, gallop, rubs, systolic murmur - GI/Abdominal GI/Abdominal exam: Present: tenderness (Mild generalized tenderness) Internal Medicine: Result - Labs CBC & Chem 7: 10/20/17 09:32 10/20/17 09:56 Labs: Short CBC 10/20/17 Range/Units 09:32 WBC 10.5 (4.3-11.1) K/mcL Hgb 12.3 L (12.9-16.9) g/dL Hct 35.1 L (37.5-50.1) % Plt Count 328 (140-400) K/mcL Neutrophils # 8.2 (1.6-8.9) K/mcL BMP 10/20/17 09:56 Sodium 138 Potassium 3.4 L Chloride 108 H Carbon Dioxide 23 BUN 4 L Creatinine 0.91 Glucose 159 H Calcium 8.7 - ABG Interpretation ABG results: PT/INR, D-dimer PT 15.7 Seconds (9.4-12.1) H 10/19/17 04:20 - Impressions Impressions Needle Aspiration CT 10/19/17 00:00 IMPRESSION: Successful CT guided placement of diverticular pelvic abscess drainage catheter. D/ / 10/19/2017 15:29:36 [facility] Interpreting Provider: Denice Vlale MD Consult Discharge Plan - Plan Referrals: Marilyn Quijano MD [Primary Care Provider] -
[2017-10-20] MEDS ORDERED: Acetaminophen/Aspirin/Caffeine TABLET PO PRN (19:56)
[2017-10-20] MEDS ORDERED: Acetaminophen/Aspirin/Caffeine TABLET PO ONE ×2 (20:19→20:50)
[2017-10-21] MEDS: MetroNIDAZOLE 500 MG/100 ML 500 MG/100 ML BAG IVPB SCH ×3 (02:22→17:38)
[2017-10-21] MEDS: *HR* Heparin 5,000 UNIT/ML VIAL SQ SCH ×2 (05:45→17:38)
[2017-10-21 10:23] LABS: BUN/Creatinine Ratio 6 (6-26); Blood Urea Nitrogen 5 mg/dL (6-20); Calcium 8.7 mg/dL (8.6-10.3); Carbon Dioxide 24 mEq/L (23-29); Chloride 107 mEq/L (98-107); Glucose 169 mg/dL (70-105); Osmolality,Calculated 287 (280-300); Potassium 3.4 mEq/L (3.5-5.1); Sodium 138 mEq/L (136-145); eGFR For African Americans > 60 (> 60); eGFR For Non-African Americans > 60 (> 60)
[2017-10-21 10:26] LABS: Basophils % 0.2 %; Eosinophils # 0.2 K/mcL (0.0-0.6); Hematocrit 35.8 % (37.5-50.1); Hemoglobin 12.6 g/dL (12.9-16.9); Immature Granulocytes % 0.5 % (0-4); Lymphocytes # 1.5 K/mcL (0.6-4.6); Lymphocytes % 16.1 %; Mean Corpuscular HGB Conc 35.2 g/dL (31.6-35.5); Mean Platelet Volume 9.5 fL (9.4-12.4); Monocytes # 0.5 K/mcL (0.0-1.3); Monocytes % 5.3 %; Neutrophils # 7.3 K/mcL (1.6-8.9); Platelet Count 347 K/mcL (140-400); Red Blood Count 4.07 M/mcL (4.19-5.50); Red Cell Distribution Width 12.8 % (11.5-14.5); Segmented Neutrophils % 75.9 %
--- NOTE | 2017-10-21 15:35 | General Surgery Progress Note ---
Date of Encounter: 10/21/17 Time of Encounter: 15:00 Subjective Patient reports: no new complaints Narrative: General Surgery - Hospital Day #5 Patient feeling well; denies any abdominal pain. Afebrile, most recently 98.0; pulse 68, respirations 14, blood pressure 122/79. Tolerating diet; no reported or recorded nausea/vomiting. Lungs: Clear bilaterally; no abdominal pain with deep inspiration Cardiac: Regular rate, no appreciable murmurs Abdomen: Soft, nontender; active bowel sounds. Percutaneously placed drain - approximately 8 mL serosanguineous fluid. Irrigated with 10 mL of sterile saline, 5 mL returned. Preliminary culture results - GPC, final identification and sensitivities pending/. Laboratories: White count 9.6; hemoglobin 12.6, hematocrit 35.8. Differential remains within normal limits; Electrolytes notable for hypokalemia of 3.4. Other electrolytes, BUN, creatinine stable and within normal limits. Impression: A 52-year-old male with acute perforated sigmoid diverticulitis and pericolic abscess. Patient has responded favorably to IV antibiotics with resolution of his abdominal pain and leukocytosis. The pericolic abscess has been percutaneously drained per Interventional Radiology Plan: Regular diet Continue antibiotics however may convert to oral; adjust antibiotics as appropriate per pending culture results (obtained at the time of placement percutaneous drain Interval sigmoid colectomy planned based on the patient's continued response to current medical management. Anticipate this to be scheduled in approximately 3-4 weeks. Objective Intake and Output 10/20/17 10/21/17 10/21/17 23:59 07:59 15:59 Intake Total 340 / 340 300 / 300 600 / 600 Output Total 700 / 700 3 / 3 530 / 530 Balance -360 / -360 297 / 297 70 / 70 Intake: IV Fluids 100 / 100 300 / 300 300 / 300 Cipro Premix 400 MG/200 ML 400 200 / 200 200 / 200 mg In 200 ml @ 200 mls/hr IVPB Q12H [facility] Rx#:[id number] Flagyl Premix 500 MG/100 ML 500 100 / 100 100 / 100 100 / 100 mg In 100 ml @ 100 mls/hr IVPB Q8H [facility] Rx#:[id number] Oral 240 / 240 300 / 300 Output: Urine 700 / 700 525 / 525 Wound Drainage / 3 5 / 5 Lower Abdomen / 3 5 / 5 Other: Meal Dinner Breakfast Percent of Meal Consumed 100% 100% - Labs 10/21/17 09:55 10/21/17 09:55 Diabetes panel 10/21/17 Range/Units 09:55 Sodium 138 (136-145) mEq/L Potassium 3.4 L (3.5-5.1) mEq/L Chloride 107 (98-107) mEq/L Carbon Dioxide 24 (23-29) mEq/L BUN 5 L (6-20) mg/dL Creatinine 0.89 (0.70-1.30) mg/dL Glucose 169 H (70-105) mg/dL Calcium 8.7 (8.6-10.3) mg/dL Calcium panel 10/21/17 Range/Units 09:55 Calcium 8.7 (8.6-10.3) mg/dL Pituitary panel 10/21/17 Range/Units 09:55 Sodium 138 (136-145) mEq/L Potassium 3.4 L (3.5-5.1) mEq/L Chloride 107 (98-107) mEq/L Carbon Dioxide 24 (23-29) mEq/L BUN 5 L (6-20) mg/dL Creatinine 0.89 (0.70-1.30) mg/dL Glucose 169 H (70-105) mg/dL Calcium 8.7 (8.6-10.3) mg/dL Adrenal panel 10/21/17 Range/Units 09:55 Sodium 138 (136-145) mEq/L Potassium 3.4 L (3.5-5.1) mEq/L Chloride 107 (98-107) mEq/L Carbon Dioxide 24 (23-29) mEq/L BUN 5 L (6-20) mg/dL Creatinine 0.89 (0.70-1.30) mg/dL Glucose 169 H (70-105) mg/dL Calcium 8.7 (8.6-10.3) mg/dL Consult Discharge Plan - Plan Referrals: Marilyn Quijano MD [Primary Care Provider] -
--- NOTE | 2017-10-21 18:13 | Internal Med Progress Note ---
Date of Encounter: 10/21/17 Time of Encounter: 11:00 - Assessment and plan (1) Acute diverticulitis Current Visit: Yes Status: Acute Assessment and plan: -Patient with left lower quadrant abdominal pain secondary to acute perforated sigmoid diverticulitis and pericolic abscess. -CT of abdomen/pelvis showed acute diverticulitis, with focal contained perforation resulting in 4 cm abscess of the anterior pelvis. -Gen. surgery following status post percutaneous drainage pericolic abscess; cultures pending for guidance of de-escalation of IV antibiotics -We will continue IV Cipro/Flagyl until culture sensitivities no known (2) Hypokalemia Current Visit: Yes Status: Acute Assessment and plan: Potassium 3.4 -Continue to monitor; replacements as needed (3) Hypertension Current Visit: Yes Status: Chronic Assessment and plan: -Blood pressure medicines currently being held; continue PRN IV Hydralazine. Qualifiers: Hypertension type: essential hypertension Qualified Code(s): I10 - Essential (primary) hypertension (4) Hyperlipidemia Current Visit: Yes Status: Chronic Qualifiers: Hyperlipidemia type: unspecified Qualified Code(s): E78.5 - Hyperlipidemia , unspecified (5) DVT prophylaxis Current Visit: Yes Status: Acute Assessment and plan: -Heparin subcutaneous - Subjective Interval history: Patient reports improvement in abdominal discomfort after placement of percutaneous drainage per surgery on 10/19/17 in addition to IV antibiotics. Awaiting culture sensitivities for guidance on de-escalation of IV antibiotics - Constitutional Vitals: Temp Pulse Resp BP Pulse Ox 98.1 F 75 16 109/72 97 10/21/17 16:16 10/21/17 16:16 10/21/17 16:16 10/21/17 16:16 10/21/17 16:16 General appearance: Present: A&O X 3, no acute distress, obese, answers questions appropriately - Respiratory Respiratory exam: Present: CTAB. Absent: accessory muscle use, rales, rhonchi, wheezes - Cardiovascular Cardiovascular exam: Present: RRR, +S1, +S2. Absent: diastolic murmur, gallop, rubs, systolic murmur Internal Medicine: Result - Labs CBC & Chem 7: 10/21/17 09:55 10/21/17 09:55 Labs: Short CBC 10/21/17 Range/Units 09:55 WBC 9.6 (4.3-11.1) K/mcL Hgb 12.6 L (12.9-16.9) g/dL Hct 35.8 L (37.5-50.1) % Plt Count 347 (140-400) K/mcL Neutrophils # 7.3 (1.6-8.9) K/mcL BMP 10/21/17 09:55 Sodium 138 Potassium 3.4 L Chloride 107 Carbon Dioxide 24 BUN 5 L Creatinine 0.89 Glucose 169 H Calcium 8.7 - ABG Interpretation ABG results: PT/INR, D-dimer PT 15.7 Seconds (9.4-12.1) H 10/19/17 04:20 Consult Discharge Plan - Plan Referrals: Marilyn Quijano MD [Primary Care Provider] -
[2017-10-22] MEDS: MetroNIDAZOLE 500 MG/100 ML 500 MG/100 ML BAG IVPB SCH (02:25)
[2017-10-22] MEDS ORDERED: Acetaminophen/Aspirin/Caffeine TABLET PO ONE (04:48)
[2017-10-22] MEDS: *HR* Heparin 5,000 UNIT/ML VIAL SQ SCH (05:38)
[2017-10-22 09:36] LABS: Basophils # 0.1 K/mcL (0.0-0.2); Basophils % 0.5 %; Eosinophils # 0.3 K/mcL (0.0-0.6); Eosinophils % 2.4 %; Hematocrit 38.7 % (37.5-50.1); Hemoglobin 13.2 g/dL (12.9-16.9); Immature Granulocytes % 0.8 % (0-4); Lymphocytes # 2.2 K/mcL (0.6-4.6); Lymphocytes % 21.1 %; Mean Corpuscular HGB Conc 34.1 g/dL (31.6-35.5); Mean Corpuscular Hemoglobin 30.5 pg (28.0-33.3); Mean Corpuscular Volume 89.4 fL (83.0-100.0); Mean Platelet Volume 9.2 fL (9.4-12.4); Monocytes # 0.7 K/mcL (0.0-1.3); Neutrophils # 7.1 K/mcL (1.6-8.9); Platelet Count 371 K/mcL (140-400); Red Blood Count 4.33 M/mcL (4.19-5.50); Red Cell Distribution Width 13.2 % (11.5-14.5); Segmented Neutrophils % 68.2 %
[2017-10-22 09:47] LABS: BUN/Creatinine Ratio 7 (6-26); Blood Urea Nitrogen 6 mg/dL (6-20); Calcium 8.8 mg/dL (8.6-10.3); Carbon Dioxide 23 mEq/L (23-29); Chloride 109 mEq/L (98-107); Glucose 107 mg/dL (70-105); Osmolality,Calculated 286 (280-300); Sodium 139 mEq/L (136-145); eGFR For African Americans > 60 (> 60); eGFR For Non-African Americans > 60 (> 60)
[2017-10-22 11:41] VITALS: BP 119/81
--- NOTE | 2017-10-22 15:07 | Discharge Summary ---
Date of Encounter: 10/22/17 Time of Encounter: 11:00 - Discharge Diagnosis (1) Acute diverticulitis Priority: Primary Status: Acute (2) Hypokalemia Priority: Secondary Status: Acute (3) Hypertension Priority: Secondary Status: Chronic Qualifiers: Hypertension type: essential hypertension Qualified Code(s): I10 - Essential (primary) hypertension (4) Hyperlipidemia Priority: Secondary Status: Chronic Qualifiers: Hyperlipidemia type: unspecified Qualified Code(s): E78.5 - Hyperlipidemia , unspecified - Discharge Medications Prescriptions: Amoxicillin/Clavulanate [Augmentin] 875 mg PO BIDWM #14 tablet Home Medications: Ciprofloxacin [Cipro] 500 mg PO BID 10/17/17 [History] Lisinopril/Hydrochlorothiazide [Zestoretic 20-25 mg Tablet] 1 each PO DAILY [History] Simvastatin [Zocor] 20 mg PO HS 10/17/17 [History] Tramadol HCl [Ultram] 50 mg PO QID PRN 10/17/17 [History] amLODIPine [Norvasc] 5 mg PO DAILY 10/17/17 [History] metroNIDAZOLE [Metronidazole] 500 mg PO Q8HR 10/17/17 [History] Allopurinol [Zyloprim 100 MG] 100 mg PO DAILY 10/18/17 [History] Amoxicillin/Clavulanate [Augmentin] 875 mg PO BIDWM #14 tablet 10/22/17 [Rx] Allergies/Adverse Reactions: 3 Allergy/AdvReac Type Severity Reaction Status Date / Time No Known Allergies Allergy Verified 10/16/17 18:30 Date of admission: 10/17/17 16:32 Primary care physician: Marilyn Quijano MD Consults: 10/19/17 11:54 Consult to Interventional Radiology [CONS] Routine Consulting Provider: Radiology Interventional Cols Reason for Consult: percutaneous drainage va colic abscess. Reviewed case with Dr Valle Time Notified: 11:15 Call Completed: Yes - Patient Status Disposition: Home, Self-Care Condition: Good - Discharge Instructions Follow Up With: Marilyn Quijano MD [Primary Care Provider] - Hospital course: Patient is a 52-year-old male with past medical history significant for hypertension, hyperlipidemia, fibromyalgia who presented to the ER on 10/17/17 for worsening abdominal pain. Patient reported of sharp abdominal pain localized to the left side for the past month which has been intermittent in nature. He went to see his PCP the day of admission and had a CT of the abdomen done which reported acute diverticulitis with focal contained performation and abscess, prompting his visit to the ER. In the ER, surgeon cork insulation setter was consult for recommendations to start IV antibiotics and to make nothing by mouth. Patient was admitted to the medical floor for further medical management. During patients hospital stay, his abdominal pain was resolved status post percutaneous drainage with drain left in place. Cultures obtained were positive for group Streptococcus and was pansensitive. Patients IV antibiotics was de-escalated from IV Cipro/Flagyl to oral Augmentin and will be discharge with FAVIOLA drain in place to follow up with surgery. He will continue Augmentin for 7 days. There are plans for an elective interval sigmoid colectomy by general surgery and 3-4 weeks. - Time Spent with Patient Total time spent providing and/or coordinating discharge services: Less than 30 minutes - Constitutional Vitals: Temp Pulse Resp BP Pulse Ox 98.3 F 71 16 119/81 97 10/22/17 11:33 10/22/17 11:33 10/22/17 11:33 10/22/17 11:33 10/22/17 11:33 General appearance: Present: A&O X 3, no acute distress, obese, answers questions appropriately - Respiratory Respiratory exam: Present: CTAB. Absent: accessory muscle use, rales, rhonchi, wheezes - Cardiovascular Cardiovascular exam: Present: RRR, +S1, +S2. Absent: diastolic murmur, gallop, rubs, systolic murmur
[2017-10-22] MEDS ORDERED: Doxycycline 100 MG CAPSULE PO SCH (21:00)
== END 2017-10-22 16:02 | disposition home or self-care (01) | DRG 392 ==
LOC: EMEROO 18:24 → 3ANU 18:24 → SUATTDRO 10-17 16:32
PROVIDERS: ADMIT Internal Medicine Hematology & Oncology; ATTEND Hospitalist
PROC: IRDRAIN (2017-10-19 12:30)

== ENCOUNTER 2017-12-16 06:27 | Inpatient (IN) ==
[2017-12-16] MEDS ORDERED: *HR* Rocuronium Bromide 50 MG/5 ML VIAL ONE ×2 (06:35→10:14)
[2017-12-16] MEDS ORDERED: *HR* Midazolam HCl 2 MG/2 ML VIAL ONE (06:35)
[2017-12-16] MEDS ORDERED: *HR* Propofol 200 MG/20 ML VIAL IVP ONE (06:35)
[2017-12-16] MEDS ORDERED: Lidocaine -MPF 2% 2 ML VIAL ONE (06:35)
[2017-12-16] MEDS ORDERED: *HR* Succinylcholine 200 MG/10 ML VIAL IVP ONE (06:35)
[2017-12-16] MEDS ORDERED: *HR* FentaNYL (PF) 100 MCG/2 ML VIAL ONE ×3 (06:35→10:13)
[2017-12-16] MEDS ORDERED: Albuterol 2.5 MG/3 ML NEBULIZER IH ONE (06:55)
--- NOTE | 2017-12-16 06:55 | History & Physical Report ---
Date of Encounter: 12/16/17 Time of Encounter: 06:54 24 Hour HP Update - Instructions Instructions: If the History and Physical is less than 30 days old and was completed prior to A.M. admission and or procedure and has NOT been updated on calendar day of procedure please complete this update prior to performing procedure. - Update Patient reports changes in Medical Condition: No Changes in examination, assessment, or condition: No Changes in Medication: No Preop tests/diagnostics Reviewed: Yes Surgery Remains Indicated: Yes Consent for Planned Operative Procedure(s) Verified: Yes Additions to current History and Physical: pt understands urology procedure - including cystoscopy and stent placement - Pre-Operative Checklist Preoperative Checklist Indicated: Yes Prophylactic Antibiotic Ordered: Yes Home Medications Include Beta Nighat: No Beta Nighat Taken Today (Day of Surgery): No Beta Nighat Taken Yesterday (Day Prior to Surgery): No Is VTE Prophylaxis Indicated?: Yes
[2017-12-16] MEDS ORDERED: Ringers Solution, Lactated 1,000 ML IVC SCH (07:00)
[2017-12-16] MEDS ORDERED: Albuterol 2.5 MG/3 ML NEBULIZER ONE (07:02)
--- NOTE | 2017-12-16 07:18 | History & Physical Report ---
Date of Encounter: 12/16/17 Time of Encounter: 07:17 24 Hour HP Update - Instructions Instructions: If the History and Physical is less than 30 days old and was completed prior to A.M. admission and or procedure and has NOT been updated on calendar day of procedure please complete this update prior to performing procedure. - Update Patient reports changes in Medical Condition: No Changes in examination, assessment, or condition: No Changes in Medication: No Preop tests/diagnostics Reviewed: Yes Surgery Remains Indicated: Yes Consent for Planned Operative Procedure(s) Verified: Yes - Pre-Operative Checklist Preoperative Checklist Indicated: Yes Prophylactic Antibiotic Ordered: Yes Home Medications Include Beta Nighat: No Beta Nighat Taken Today (Day of Surgery): No Beta Nighat Taken Yesterday (Day Prior to Surgery): No Is VTE Prophylaxis Indicated?: Yes
[2017-12-16] MEDS ORDERED: Isovue-300 50 ML VIAL IVP ONE (07:50)
--- NOTE | 2017-12-16 07:57 | Anesthesia Evaluation PreOp ---
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 HX Other Medical History: Denies Any Significant HX Anesthesia History: No Prior Anesthetic Complications, Past Anesthesia (T&A) Alcohol Use: none Drug use: none Medications and Allergies Lisinopril/Hydrochlorothiazide [Zestoretic 20-25 mg Tablet] 1 tab PO DAILY 10/17 [History] Simvastatin [Zocor] 20 mg PO HS 10/17/17 [History] Tramadol HCl [Ultram] 50 mg PO QID PRN 10/17/17 [History] amLODIPine [Norvasc] 5 mg PO DAILY 10/17/17 [History] Allopurinol [Zyloprim 100 MG] 200 mg PO DAILY 10/18/17 [History] Aspirin/Acetaminophen/Caffeine [Excedrin Extra Strength Caplet] 2 tab PO BID PRN 12/16/17 [History] 3 Allergy/AdvReac Type Severity Reaction Status Date / Time No Known Allergies Allergy Verified 12/16/17 06:56 - Meds/Allergy Pre-op Review Medications Reviewed: Yes Allergies Reviewed: Yes Beta Blockers on Current Med List: No Anesthesia Results - Labs Laboratory Tests 10/22/17 11/26/17 11/26/17 09:19 14:31 14:45 Hgb 14.4 Hct 41.8 Plt Count 342 Sodium 139 Potassium 3.6 BUN 6 Creatinine 0.92 - Imaging EKG: report reviewed (SINUS RHYTHM INFERIOR MYOCARDIAL INFARCTION, PROBABLY OLD) Anesthesia Exam Selected Entries 12/16/17 06:44 12/16/17 07:23 Temperature 97.9 F Pulse Rate 83 Respiratory Rate 18 Blood Pressure 120/77 O2 Sat by Pulse Oximetry 95 Oxygen Delivery Method Room Air Weight: 88kg NPO (# of Hours): 8 - HEENT Pupil (Motor): EOMI Mallampati: III Teeth: Normal Oral Opening: Greater than 3 - 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
[2017-12-16] MEDS ORDERED: Bupivacaine-MPF 0.25% 10 ML VIAL ONE ×2 (08:01→09:58)
[2017-12-16] MEDS ORDERED: Ertapenem 1,000 MG in 0.9 % Sodium Chloride Mini Bag 100 ML IVPB SCH (09:00)
[2017-12-16] MEDS ORDERED: Ondansetron 4 MG/2 ML VIAL ONE (09:05)
[2017-12-16] MEDS ORDERED: *HR* Labetalol 20 MG/4 ML SYRINGE IVP PRN (09:13)
[2017-12-16] MEDS ORDERED: *HR* Promethazine 25 MG/ML VIAL IVP PRN (09:13)
[2017-12-16] MEDS ORDERED: *HR* OxyCODONE Immed Rel 5 MG TABLET PO PRN (09:13)
[2017-12-16] MEDS ORDERED: *HR* Meperidine 25 MG/ML SYRINGE IVP PRN (09:13)
[2017-12-16] MEDS ORDERED: ROPIVACAINE HCL/PF 0.5% 30 ML VIAL ONE (10:18)
[2017-12-16] MEDS ORDERED: *HR* Morphine Sulfate/PF 10 MG/10 ML AMPUL ONE (10:27)
[2017-12-16] MEDS ORDERED: Morphine Sulfate/PF 10mg/10mL 10 MG, Bupivacaine-MPF 0.25% 125 ML in 0.9 % Sodium Chlor... EP SCH (10:45)
[2017-12-16] MEDS ORDERED: Neostigmine Methylsulfate 3 MG/3 ML SYRINGE ONE (11:33)
--- NOTE | 2017-12-16 11:45 | Operative Note ---
Date of procedure: 12/16/17 Pre-op diagnosis: acute sigmoid diverticulitis Post-op diagnosis: same Procedure: Cystoscopy with bilateral ureteral stent placement by Dr. Codey Cardoza; exploratory celiotomy, lysis of adhesions 30 minutes, incision and drainage of pelvic abscess; sigmoid colectomy with stapled colocolonic anastomosis; incidental appendectomy; intraoperative rigid sigmoidoscopy Complications: None apparent Anesthesia: GETA, epidural Surgeon: Yan Watts Was there an service assistant present: No Estimated blood loss (cc): 150 IV fluids (cc): 2,000 Specimen: sigmoid colon, appendix, anastomotic rings, aerobic/anaerobic cultures Disposition: PACU Procedure in Detail: Brief history: 52-year-old male who returns to [facility] for interval sigmoid colectomy. The patient presented several weeks ago with acute sigmoid diverticulitis with contained perforation. The patient has responded well to IV antibiotics with resolution of the acute inflammatory changes. The patient presents now for definitive resection of the involved sigmoid colon. Preoperative CT showed acute inflammation of the dome of the bladder with inflammatory streaking and thickening suggestive of bladder involvement. [facility] was consulted for preoperative cystoscopy and bilateral ureteral stent placement. [facility] was also consult the for placement of an epidural catheter for perioperative pain control Technique: After placement of the epidural catheter, the patient was brought to the operating room and placed supine on the operating room table. The patient was appropriately identified as to person and procedure. The accuracy of this information was confirmed by the patient and the procedure team. The patient was then intubated and anesthetized under the supervision of Dr. Alli Garcia. The patient was placed in high lithotomy using yellowfin stirrups. Dr. Codey Cardoza completed a transurethral cystoscopy with bilateral ureteral stent placement. His procedure will be available for inspection under separate cover. Once the cystoscopy with ureteral stent placement was completed, the patient was placed in low lithotomy position. The perineum was prepped and draped in the usual sterile fashion as was the anterior abdominal wall. The patient was again identified as to person and procedure. This information was confirmed by the procedure team. A midline incision was made from cephalad to the umbilicus to the pubis. The incision was extended to the fascia. Bleeding points were controlled with electrocautery. The fascia was then divided in the midline along the linea alba. The abdomen was entered atraumatically. Exposure was facilitated by use of a self-retaining Omni tract retractor. The sigmoid colon was densely adherent to the bladder. This was sharply dissected. As the sigmoid colon was mobilized and abscess was encountered. Aerobic and anaerobic cultures were obtained. The abscess was densely adherent to the dome of the bladder. The abscess was resected without penetrating The dissection continued and was extended into the pelvis as well as cephalad along the lateral peritoneal reflection. A segment in the distal descending colon was found to be free of diverticula. This was transected with an Ethicon 35 mm linear stapler. The mesentery was divided with an Ethicon Enseal Harmonic dissector. The left colic vessels were controlled with curved Bertha clamps, divided, and suture ligated with 2-0 silk. The dissection extended into the pelvis. Near the rectosigmoid the bowel was transected with the aid of an Ethicon TX 60 mm stapler. The sigmoid colon was removed. Additional dissection was necessary along the lateral peritoneal reflection of the descending colon to affect mobilization to allow for a tension-free stapled anastomosis. Once I was satisfied with the mobilization I directed my attention to the cecum/appendix. An unremarkable appendix was identified and exteriorized. The mesoappendix was divided with the aid of the Ethicon Enseal dissector. The appendix was transected with the aid of an Ethicon TX 30 mm stapler at its junction with the cecum. A straight hemostat was applied distal to the staple line,the appendix was divided and removed. The staple line was inspected and found to be intact. The descending colon was then measured with the EEA sounds. A 29 ECS EEA stapler was selected. The distal descending colon was transected with stapling device. The EEA anvil was inserted. The pursestring was secured. The pelvis was irrigated several times with warm sterile saline which was then evacuated with the suction device. The surgeon proceeded to the perineum where the Charles pouch was measured with the EEA sound. The Charles pouch measured approximately 10 cm in length. The EEA stapler was inserted, the spike deployed through the staple line, the anvil was attached. The colocolonic anastomosis was completed. On removal of the EEA stapler, 2 intact anastomotic rings were identified. Rigid sigmoidoscopy was then completed. The staple line was visualized and appeared to be intact. The colon was then insufflated with air no string of air bubbles identified within the pelvis filled with saline. The colon was decompressed, the rigid sigmoidoscope removed. The surgeon was regowned and gloved. The abdomen was inspected for adequate hemostasis and then closed. Small bowel demonstrated no other abnormalities, the colon appeared to be intact. The peritoneum was closed with running interlocking 0 Vicryl. The fascia was approximated with interrupted [id number] 0 Vicryl. The subcutaneous tissue was approximated with running 3-0 Vicryl. The skin edges were approximated with tessa. Dry sterile dressings were applied. The ureteral stents were removed without difficulty. The Chávez was left in situ. The patient was taken to recovery in stable condition. Needle, sponge, and instrument counts were correct at the close of the case. Specimens submitted to pathology: The sigmoid colon which was opened on the back table; the 2 anastomotic rings with the proximal anastomotic ring tagged with a silk suture; the appendix; aerobic and anaerobic cultures of the pelvic abscess.
[2017-12-16] MEDS: MORPHINE SUL Oral CONC 10 MG/0.5 ML ORAL.SYG SL PRN ×2 (12:10→12:20)
--- NOTE | 2017-12-16 12:31 | Anesthesia Evaluation Post Op ---
Date of Encounter: 12/16/17 Time of Encounter: 12:30 - Vital Signs Vital Signs: Last Vital Signs Temp 97.9 F 12/16/17 11:48 Pulse 77 12/16/17 12:08 Resp 16 12/16/17 12:08 BP 130/83 12/16/17 12:08 Pulse Ox 93 12/16/17 12:08 - Lungs Lungs: Clear Ascult./Percussion - Airway Airway: Non-obstructed - Cardiovascular Regular Rate - Mental Status Mental Status: Alert & Oriented, Answers Appropriately - Pain Pain Scale: 3 - Nausea Vomiting Nausea Vomiting: Not Present - Hydration Hydration: NPO - Discharge PostOp Status: Transfer Patient to floor
[2017-12-16] MEDS ORDERED: Ringers Solution, Lactated 500 ML IVC ONE (14:02)
[2017-12-16] MEDS: Ringers Solution, Lactated 1,000 ML IVC SCH (14:33)
[2017-12-16] MEDS: Albuterol 2.5 MG/3 ML NEBULIZER IH SCH ×2 (15:56→22:17)
[2017-12-16] MEDS ORDERED: *HR* OxyCODONE ER (12 HR) 10 MG TABLET PO PRN (18:54)
[2017-12-16] MEDS: *HR* OxyCODONE Immed Rel 5 MG TABLET PO PRN (21:16)
[2017-12-17] MEDS ORDERED: *HR* OxyCODONE ER (12 HR) 10 MG TABLET PO SCH
[2017-12-17] MEDS: Ringers Solution, Lactated 1,000 ML IVC SCH ×2 (01:37→09:34)
[2017-12-17] MEDS: Albuterol 2.5 MG/3 ML NEBULIZER IH SCH ×4 (03:55→23:19)
[2017-12-17 04:20] LABS: Basophils # 0.1 K/mcL (0.0-0.2); Basophils % 0.4 %; Eosinophils % 0.1 %; Hemoglobin 13.3 g/dL (12.9-16.9); Immature Granulocytes % 0.3 % (0-4); Lymphocytes # 1.9 K/mcL (0.6-4.6); Lymphocytes % 13.6 %; Mean Corpuscular Hemoglobin 31.1 pg (28.0-33.3); Mean Platelet Volume 9.6 fL (9.4-12.4); Monocytes # 1.1 K/mcL (0.0-1.3); Monocytes % 8.1 %; Neutrophils # 10.6 K/mcL (1.6-8.9); Platelet Count 310 K/mcL (140-400); Red Blood Count 4.27 M/mcL (4.19-5.50); Red Cell Distribution Width 13.8 % (11.5-14.5); Segmented Neutrophils % 77.5 %
[2017-12-17 04:33] LABS: BUN/Creatinine Ratio 11 (6-26); Blood Urea Nitrogen 11 mg/dL (6-20); Calcium 8.6 mg/dL (8.6-10.3); Carbon Dioxide 25 mEq/L (23-29); Chloride 105 mEq/L (98-107); Glucose 107 mg/dL (70-105); Osmolality,Calculated 288 (280-300); Potassium 3.5 mEq/L (3.5-5.1); Sodium 139 mEq/L (136-145); eGFR For African Americans > 60 (> 60); eGFR For Non-African Americans > 60 (> 60)
[2017-12-17] MEDS ORDERED: Ertapenem 1,000 MG in 0.9 % Sodium Chloride Mini Bag 100 ML IVPB SCH (09:00)
[2017-12-17] MEDS: Pantoprazole 40 MG VIAL IVP SCH (09:31)
[2017-12-17] MEDS: *HR* OxyCODONE Immed Rel 5 MG TABLET PO PRN ×2 (09:31→17:23)
[2017-12-17] MEDS: amLODIPine 5 MG TABLET PO SCH (09:32)
--- NOTE | 2017-12-17 12:43 | General Surgery Progress Note ---
Date of Encounter: 12/17/17 Time of Encounter: 11:15 Subjective Narrative: General Surgery - POD #1 Patient indicates he is feeling well; complaining of back pain. Abdominal pain is controlled via epidural. No fever, nausea or vomiting. The patient is currently afebrile at 98.7, pulse 88, respirations 18, blood pressure 115/73. Lungs: Clear; fairly good inspiratory effort Abdomen: Soft, quiet. Midline incision clean and dry - abdominal dressing removed Urine output approximately 550 mL so far today Labs: White count 13.6 with 10.6% neutrophils, likely response surgery Hemoglobin 13.3 with hematocrit 38.0. Platelet count 310,000. Electrolytes, BUN, creatinine within normal limits. Operative past: Pending Impression: 52-year-old male, postoperative day 1, status post sigmoid colectomy with incidental appendectomy and stapled colocolonic anastomosis. Acceptable pain control via epidural Patient complaining of back pain likely due to inactivity and his position in bed Acceptable postoperative status; awaiting return of bowel function to resume oral intake Objective Vital Signs - Last 8 Hours Temp Pulse Resp BP Pulse Ox 12/17/17 10:29 98.7 F 88 18 115/73 93 12/17/17 10:26 18 93 12/17/17 07:29 98.8 F 86 18 115/67 93 Intake and Output 12/16/17 12/17/17 12/17/17 23:59 07:59 15:59 Intake Total 800 / 800 200 / 200 1000 / 1000 Output Total 550 / 550 550 / 550 Balance 250 / 250 -350 / -350 1000 / 1000 Intake: IV Fluids 800 / 800 200 / 200 1000 / 1000 Lactated Ringers 1,000 ML @ 100 800 / 800 200 / 200 1000 / 1000 mls/hr IVC .Q10H [facility] Rx#: [id number] Oral 0 / 0 Output: Urine 550 / 550 Catheter 550 / 550 Other: Meal NPO Blood Glucose* 110 - Labs 12/17/17 03:29 12/17/17 03:29 Diabetes panel 12/17/17 Range/Units 03:29 Sodium 139 (136-145) mEq/L Potassium 3.5 (3.5-5.1) mEq/L Chloride 105 (98-107) mEq/L Carbon Dioxide 25 (23-29) mEq/L BUN 11 (6-20) mg/dL Creatinine 0.97 (0.70-1.30) mg/dL Glucose 107 H (70-105) mg/dL Calcium 8.6 (8.6-10.3) mg/dL Calcium panel 12/17/17 Range/Units 03:29 Calcium 8.6 (8.6-10.3) mg/dL Pituitary panel 12/17/17 Range/Units 03:29 Sodium 139 (136-145) mEq/L Potassium 3.5 (3.5-5.1) mEq/L Chloride 105 (98-107) mEq/L Carbon Dioxide 25 (23-29) mEq/L BUN 11 (6-20) mg/dL Creatinine 0.97 (0.70-1.30) mg/dL Glucose 107 H (70-105) mg/dL Calcium 8.6 (8.6-10.3) mg/dL Adrenal panel 12/17/17 Range/Units 03:29 Sodium 139 (136-145) mEq/L Potassium 3.5 (3.5-5.1) mEq/L Chloride 105 (98-107) mEq/L Carbon Dioxide 25 (23-29) mEq/L BUN 11 (6-20) mg/dL Creatinine 0.97 (0.70-1.30) mg/dL Glucose 107 H (70-105) mg/dL Calcium 8.6 (8.6-10.3) mg/dL - VTE Documentation of Mechanical Device: Intermittent pneumatic compression device Consult Discharge Plan - Plan Referrals: Marilyn Quijano MD [Primary Care Provider] -
[2017-12-17] MEDS: D5% in 0.45% NACL 1,000 ML IVC SCH (13:22)
--- NOTE | 2017-12-17 14:00 | Anesthesia Procedures ---
Date of Encounter: 12/17/17 Time of Encounter: 13:58 Procedures: Anesthesia - Epidural Rounding Post Op Day #: 1 Procedure: sigmoid colectomy Pain Control: Good Breakthrough Pain Meds: Yes Vital Signs: Last Vital Signs Temp 98.7 F 12/17/17 10:29 Pulse 88 12/17/17 10:29 Resp 18 12/17/17 10:29 BP 115/73 12/17/17 10:29 Pulse Ox 93 12/17/17 10:29 Mental Status: awake, alert Catheter Site Dressing Intact: Yes Erythema: No Pruritus: not present Signs of Infection At Catheter Site: No Plan: Continue current rate
[2017-12-18] MEDS: D5% in 0.45% NACL 1,000 ML IVC SCH (00:30)
[2017-12-18] MEDS: Albuterol 2.5 MG/3 ML NEBULIZER IH SCH ×4 (04:04→23:25)
[2017-12-18 05:16] LABS: Basophils # 0.1 K/mcL (0.0-0.2); Basophils % 0.4 %; Eosinophils # 0.1 K/mcL (0.0-0.6); Eosinophils % 0.5 %; Hematocrit 37.3 % (37.5-50.1); Hemoglobin 12.6 g/dL (12.9-16.9); Immature Granulocytes % 0.4 % (0-4); Lymphocytes % 14.1 %; Mean Corpuscular HGB Conc 33.8 g/dL (31.6-35.5); Mean Corpuscular Hemoglobin 30.4 pg (28.0-33.3); Mean Corpuscular Volume 90.1 fL (83.0-100.0); Mean Platelet Volume 9.8 fL (9.4-12.4); Monocytes # 1.2 K/mcL (0.0-1.3); Monocytes % 8.5 %; Neutrophils # 10.9 K/mcL (1.6-8.9); Platelet Count 290 K/mcL (140-400); Red Blood Count 4.14 M/mcL (4.19-5.50); Red Cell Distribution Width 13.3 % (11.5-14.5); Segmented Neutrophils % 76.1 %
[2017-12-18 05:24] LABS: Magnesium 1.7 mg/dL (1.6-2.6); Phosphorous 2.5 mg/dL (2.7-4.5)
[2017-12-18] MEDS ORDERED: Potassium Phosphate 44 MEQ in 0.9 % Sodium Chloride 250 ML IVPB ONE (07:48)
[2017-12-18] MEDS: Pantoprazole 40 MG VIAL IVP SCH (09:18)
[2017-12-18] MEDS: amLODIPine 5 MG TABLET PO SCH (09:18)
--- NOTE | 2017-12-18 15:20 | General Surgery Progress Note ---
Date of Encounter: 12/18/17 Time of Encounter: 15:05 Subjective Patient reports: no new complaints Narrative: General Surgery - POD #2 Patient indicating is well; satisfactory pain control with epidural. No fever; hemodynamically stable - 98.2 - 88 - 18 - 115/75 Lungs clear to auscultation; satisfactory inspiratory effort Abdomen: Soft, active bowel sounds but no flatus or BM reported by patient; midline incision clean and dry Urine output: 1550 mL 4 calendar day 12/17/17; 1100 mL so far today Operative pathology still pending Laboratories: White count slightly increased to 14.3; hemoglobin 12.6 with hematocrit 37.3. Neutrophils have increased from 10.6-10.9% Magnesium 1.7; phosphorus 2.5 Impression: Postoperative day #2- status post sigmoid colectomy for acute perforated diverticulitis with pericolonic abscess Acceptable postoperative status with satisfactory pain control via epidural Satisfactory urine output - will maintain Chávez until epidural catheter removed Hypophosphatemia Plan: Allow clear liquids Reduce IV fluids Hypophosphatemia addressed with IV potassium phosphate Likely discontinuation of epidural catheter in a.m. Objective Vital Signs - Last 8 Hours Temp Pulse Resp BP Pulse Ox 12/18/17 11:04 98.2 F 88 18 115/75 92 12/18/17 10:27 16 90 Intake and Output 12/17/17 12/18/17 12/18/17 23:59 07:59 15:59 Intake Total 1000 / 1000 Output Total 1000 / 1000 1100 / 1100 Balance -1000 / -1000 -100 / -100 Intake: IV Fluids 1000 / 1000 D5% And 0.45% Nacl 1000 Ml Bag 1000 / 1000 1,000 ML @ 90 mls/hr IVC . [id number] [facility] Rx#:[id number] Output: Catheter 1000 / 1000 1100 / 1100 Other: Weight 89.564 kg Patient Weight 12/18/17 23:59 Weight 89.564 kg - Labs 12/18/17 03:53 12/17/17 03:29 Calcium panel 12/18/17 Range/Units 03:53 Phosphorus 2.5 L (2.7-4.5) mg/dL - VTE Documentation of Mechanical Device: Intermittent pneumatic compression device Consult Discharge Plan - Plan Referrals: Marilyn Quijano MD [Primary Care Provider] -
[2017-12-18] MEDS ORDERED: D5% in 0.45% NACL 1,000 ML IVC SCH (15:30)
[2017-12-18] MEDS: *HR* OxyCODONE Immed Rel 5 MG TABLET PO PRN (23:48)
[2017-12-18] MEDS: Morphine Sulfate/PF 10mg/10mL 10 MG, Bupivacaine-MPF 0.25% 125 ML in 0.9 % Sodium Chlor... EP SCH (23:51)
[2017-12-19] MEDS: Albuterol 2.5 MG/3 ML NEBULIZER IH SCH ×4 (03:27→22:26)
[2017-12-19 06:24] LABS: Basophils % 0.3 %; Eosinophils # 0.3 K/mcL (0.0-0.6); Eosinophils % 1.9 %; Hematocrit 36.6 % (37.5-50.1); Hemoglobin 12.8 g/dL (12.9-16.9); Immature Granulocytes % 0.4 % (0-4); Lymphocytes # 1.3 K/mcL (0.6-4.6); Mean Corpuscular Hemoglobin 31.1 pg (28.0-33.3); Mean Corpuscular Volume 89.1 fL (83.0-100.0); Mean Platelet Volume 9.7 fL (9.4-12.4); Monocytes % 6.2 %; Neutrophils # 13.3 K/mcL (1.6-8.9); Platelet Count 302 K/mcL (140-400); Red Blood Count 4.11 M/mcL (4.19-5.50); Red Cell Distribution Width 13.2 % (11.5-14.5); Segmented Neutrophils % 83.2 %
[2017-12-19 06:39] LABS: BUN/Creatinine Ratio 11 (6-26); Blood Urea Nitrogen 8 mg/dL (6-20); Calcium 8.6 mg/dL (8.6-10.3); Carbon Dioxide 25 mEq/L (23-29); Chloride 103 mEq/L (98-107); Glucose 108 mg/dL (70-105); Osmolality,Calculated 283 (280-300); Phosphorous 2.8 mg/dL (2.7-4.5); Potassium 3.4 mEq/L (3.5-5.1); Sodium 137 mEq/L (136-145); eGFR For African Americans > 60 (> 60); eGFR For Non-African Americans > 60 (> 60)
[2017-12-19] MEDS: amLODIPine 5 MG TABLET PO SCH (08:41)
[2017-12-19] MEDS: Pantoprazole 40 MG VIAL IVP SCH (08:41)
[2017-12-19] MEDS ORDERED: cefTRIAXone 2,000 MG in Water for inj. (sterile) 20 ML 20 ML IVPB STA (11:00)
--- NOTE | 2017-12-19 11:13 | Anesthesia Progress Note ---
Date of Encounter: 12/19/17 Time of Encounter: 11:10 Anesthesia Note - Note Note: 12/19/17 11:12 Epidural catheter pulled, tip intact, site clean. VSS
--- NOTE | 2017-12-19 11:53 | General Surgery Progress Note ---
Date of Encounter: 12/19/17 Time of Encounter: 11:46 Subjective Narrative: General Surgery - POD #3 Patient with no new complaints; tolerating clear liquids without increased abdominal pain or distention. Passing flatus. Afebrile, 98.2, pulse stable at 85 and regular; respiratory rate 16, blood pressure 111/75. SPO2 on 2 L per nasal cannula 92-93% Lungs clear to auscultation; satisfactory inspiratory effort; cough still causing abdominal/incisional pain Abdomen: Soft, slightly distended but likely at baseline; no peritoneal signs. Active bowel sounds. Incision clean and dry. Urine output 1600 mL for calendar day 12/18/17; urine output so far today 1000 mL Operative pathology: Sigmoid diverticulosis with chronic diverticulitis; appendix with no diagnostic abnormality Pelvic abscess cultures: Raoultella planticola - sensitive to all anabiotic except ampicillin Laboratories: White count continues to rise, 15.9; hemoglobin 12.8, hematocrit 36.6. Neutrophil has also increased to 13.3% Electrolytes, BUN/creatinine, creatinine notable for diminished potassium 3.4. Impression: Postoperative day 3; status post sigmoid colectomy for acute sigmoid diverticulitis with perforation; pathology results noted Anticipate removal of epidural catheter today Once epidural catheter was removed, will remove Chávez catheter Patient tolerating clear liquids without increased abdominal distention; passing flatus Plan: Advance diet to full liquids Initiate ceftriaxone Continue to monitor leukocytosis Remove Chávez catheter after epidural catheter removed by anesthesia. Objective Vital Signs - Last 8 Hours Temp Pulse Resp BP Pulse Ox 12/19/17 11:34 98.2 F 85 16 111/75 92 12/19/17 08:45 93 12/19/17 07:47 98.3 F 85 16 130/86 93 Intake and Output 12/18/17 12/19/17 12/19/17 23:59 07:59 15:59 Intake Total 320 / 320 Output Total 500 / 500 1000 / 1000 Balance -500 / -500 -1000 / -1000 320 / 320 Intake: Oral 320 / 320 Output: Catheter 500 / 500 1000 / 1000 - Labs 12/19/17 05:22 12/19/17 05:22 Diabetes panel 12/19/17 Range/Units 05:22 Sodium 137 (136-145) mEq/L Potassium 3.4 L (3.5-5.1) mEq/L Chloride 103 (98-107) mEq/L Carbon Dioxide 25 (23-29) mEq/L BUN 8 (6-20) mg/dL Creatinine 0.76 (0.70-1.30) mg/dL Glucose 108 H (70-105) mg/dL Calcium 8.6 (8.6-10.3) mg/dL Calcium panel 12/19/17 Range/Units 05:22 Calcium 8.6 (8.6-10.3) mg/dL Phosphorus 2.8 (2.7-4.5) mg/dL Pituitary panel 12/19/17 Range/Units 05:22 Sodium 137 (136-145) mEq/L Potassium 3.4 L (3.5-5.1) mEq/L Chloride 103 (98-107) mEq/L Carbon Dioxide 25 (23-29) mEq/L BUN 8 (6-20) mg/dL Creatinine 0.76 (0.70-1.30) mg/dL Glucose 108 H (70-105) mg/dL Calcium 8.6 (8.6-10.3) mg/dL Adrenal panel 12/19/17 Range/Units 05:22 Sodium 137 (136-145) mEq/L Potassium 3.4 L (3.5-5.1) mEq/L Chloride 103 (98-107) mEq/L Carbon Dioxide 25 (23-29) mEq/L BUN 8 (6-20) mg/dL Creatinine 0.76 (0.70-1.30) mg/dL Glucose 108 H (70-105) mg/dL Calcium 8.6 (8.6-10.3) mg/dL - VTE Documentation of Mechanical Device: Intermittent pneumatic compression device Consult Discharge Plan - Plan Referrals: Marilyn Quijano MD [Primary Care Provider] -
[2017-12-19] MEDS: Potassium Chloride Elixir 20 MEQ/15 ML UDC PO SCH ×2 (12:24→20:36)
[2017-12-19] MEDS: *HR* OxyCODONE Immed Rel 5 MG TABLET PO PRN ×2 (12:24→16:50)
[2017-12-19] MEDS: Morphine Sulfate/PF 10mg/10mL 10 MG, Bupivacaine-MPF 0.25% 125 ML in 0.9 % Sodium Chlor... EP SCH (16:24)
[2017-12-20] MEDS: *HR* OxyCODONE Immed Rel 5 MG TABLET PO PRN (00:32)
[2017-12-20] MEDS: Albuterol 2.5 MG/3 ML NEBULIZER IH SCH ×4 (03:47→21:30)
[2017-12-20 05:54] LABS: Basophils # 0.1 K/mcL (0.0-0.2); Basophils % 0.4 %; Eosinophils # 0.4 K/mcL (0.0-0.6); Eosinophils % 2.5 %; Hematocrit 36.5 % (37.5-50.1); Hemoglobin 12.3 g/dL (12.9-16.9); Immature Granulocytes % 0.5 % (0-4); Lymphocytes # 1.7 K/mcL (0.6-4.6); Lymphocytes % 12.1 %; Mean Corpuscular HGB Conc 33.7 g/dL (31.6-35.5); Mean Corpuscular Hemoglobin 30.7 pg (28.0-33.3); Mean Platelet Volume 9.7 fL (9.4-12.4); Monocytes # 1.1 K/mcL (0.0-1.3); Monocytes % 7.7 %; Neutrophils # 10.6 K/mcL (1.6-8.9); Platelet Count 335 K/mcL (140-400); Red Blood Count 4.01 M/mcL (4.19-5.50); Red Cell Distribution Width 13.3 % (11.5-14.5); Segmented Neutrophils % 76.8 %
[2017-12-20] MEDS: Potassium Chloride Elixir 20 MEQ/15 ML UDC PO SCH ×2 (08:25→20:50)
[2017-12-20] MEDS: amLODIPine 5 MG TABLET PO SCH (08:25)
[2017-12-20] MEDS ORDERED: *HR* OxyCODONE/APAP 5/325 TABLET PO PRN (11:15)
[2017-12-20] MEDS ORDERED: Acetaminophen 325 MG TABLET PO PRN (11:15)
--- NOTE | 2017-12-20 11:24 | General Surgery Progress Note ---
Date of Encounter: 12/20/17 Time of Encounter: 11:20 Subjective Narrative: General Surgery - POD#4 Patient feeling well; and controlled by oral medications following discontinuation of epidural catheter Chávez removed; patient able to void. Patient is complaining of "toe pain" ( podagra) which he attributes to gout The patient remains afebrile, hemodynamically stable - 98.0/81/16/120/78. SPO2 on room air 95% Lungs: Clear Abdomen: Soft, less distended, nontender. Midline incision clean and dry. Active bowel sounds. Laboratories: White count has improved to 13.8 (previously 15.9) hemoglobin hematocrit stable 12.3/36.5. Neutrophils improved to 10.6% Potassium corrected to 3.6 Impression: Postoperative day 4 - status post sigmoid colectomy for acute sigmoid diverticulitis with perforation; except a mild postoperative status Satisfactory pain control following removal of epidural catheter Resolving leukocytosis - continue ceftriaxone for the culture positive pelvic abscess adjacent to the bladder Resume patient's home meds including colchicine for his acute toe pain Objective Vital Signs - Last 8 Hours Temp Pulse Resp BP Pulse Ox 12/20/17 11:02 98.0 F 81 16 120/78 95 12/20/17 08:30 94 12/20/17 07:04 98.6 F 80 15 112/76 94 12/20/17 03:47 17 93 Intake and Output 12/19/17 12/20/17 12/20/17 23:59 07:59 15:59 Intake Total 320 / 320 120 / 120 Output Total 150 / 150 Balance 170 / 170 120 / 120 Intake: Oral 320 / 320 120 / 120 Output: Urine 150 / 150 Other: # Voids 1 1 # Bowel Movements 1 1 Weight 92.1 kg Patient Weight 12/20/17 23:59 Weight 92.1 kg - Labs 12/20/17 05:27 12/20/17 05:27 Diabetes panel 12/20/17 Range/Units 05:27 Potassium 3.6 (3.5-5.1) mEq/L Pituitary panel 12/20/17 Range/Units 05:27 Potassium 3.6 (3.5-5.1) mEq/L Adrenal panel 12/20/17 Range/Units 05:27 Potassium 3.6 (3.5-5.1) mEq/L - VTE Documentation of Mechanical Device: Intermittent pneumatic compression device Consult Discharge Plan - Plan Referrals: Marilyn Quijano MD [Primary Care Provider] -
[2017-12-20] MEDS: cefTRIAXone 2,000 MG in Water for inj. (sterile) 20 ML 20 ML IVP SCH (12:32)
[2017-12-20] MEDS: Colchicine 0.6 MG TABLET PO SCH (12:32)
[2017-12-20] MEDS: Lisinopril-HCTZ 20-12.5mg TABLET PO SCH (12:32)
[2017-12-21] MEDS: Albuterol 2.5 MG/3 ML NEBULIZER IH SCH ×2 (04:06→11:00)
[2017-12-21 06:37] LABS: Basophils % 0.4 %; Eosinophils # 0.4 K/mcL (0.0-0.6); Eosinophils % 4.1 %; Hematocrit 37.9 % (37.5-50.1); Hemoglobin 13.1 g/dL (12.9-16.9); Immature Granulocytes % 0.5 % (0-4); Immature Platelets 2.4 % (1.1-6.1); Lymphocytes # 1.2 K/mcL (0.6-4.6); Lymphocytes % 11.7 %; Mean Corpuscular HGB Conc 34.6 g/dL (31.6-35.5); Mean Corpuscular Hemoglobin 30.8 pg (28.0-33.3); Mean Corpuscular Volume 89.2 fL (83.0-100.0); Mean Platelet Volume 9.3 fL (9.4-12.4); Monocytes # 0.7 K/mcL (0.0-1.3); Monocytes % 7.1 %; Neutrophils # 7.8 K/mcL (1.6-8.9); Platelet Count 393 K/mcL (140-400); Red Blood Count 4.25 M/mcL (4.19-5.50); Red Cell Distribution Width 13.2 % (11.5-14.5); Segmented Neutrophils % 76.2 %
[2017-12-21] MEDS: Colchicine 0.6 MG TABLET PO SCH (07:36)
[2017-12-21] MEDS: Lisinopril-HCTZ 20-12.5mg TABLET PO SCH (07:36)
[2017-12-21] MEDS: amLODIPine 5 MG TABLET PO SCH (07:36)
[2017-12-21] MEDS: Potassium Chloride Elixir 20 MEQ/15 ML UDC PO SCH (07:37)
[2017-12-21] MEDS: cefTRIAXone 2,000 MG in Water for inj. (sterile) 20 ML 20 ML IVP SCH (11:54)
[2017-12-21 12:02] VITALS: BP 104/67
--- NOTE | 2017-12-21 12:36 | General Surgery Progress Note ---
Date of Encounter: 12/21/17 Time of Encounter: 12:10 Subjective Patient reports: no new complaints, feels better, tolerating a regular diet Narrative: General Surgery - POD #5 Progress Note and Discharge Summary Patient feeling well, voicing no complaints. Tolerating regular diet without nausea or vomiting. Alfonso pain/incisional pain continues to improve The patient remains afebrile, 98.5, pulse 86, respirations 18, blood pressure 104/67; SPO2 on room air 94-95% Lungs: Clear, no abdominal pain with deep inspiration Cardiac: Regular rate, no appreciable murmur Abdomen: Soft with minimal incisional tenderness. Active bowel sounds. Midline incision clean and dry. Extremities: Toe pain improved with resumption of home meds Laboratories show resolution of the leukocytosis, 10.2; hemoglobin 13.1, hematocrit 37.9, platelet count 393,000 Impression: Postoperative day 5, status post sigmoid colectomy for acute sigmoid diverticulitis with pelvic abscess insistent with prior perforation. Satisfactory recovery, status stable for discharge home Hospital course: 52-year-old male admitted to [facility], 12/16/17, following surgery for acute sigmoid diverticulitis with contained perforation. The patient had originally presented 10/16/17 with month-long history of abdominal pain. CT of the abdomen/ pelvis demonstrated sigmoid diverticulitis with perforation and a contained abscess just cephalad to the bladder. The patient was admitted, kept NPO, and treated with IV antibiotics, IV analgesics, and IV antiemetics. The patient has satisfactory response with resolution of his pain and control of his acute sigmoid diverticulitis. CT was repeated on 11/13/17, demonstrating a persistent gas collection along the wall of the sigmoid colon measuring 1.7 x 1.9 x 2.3 cm. Mild persistent inflammatory stranding was present but considered significantly improved from the prior evaluation. There was thickening and inflammation to the adjacent dome of the bladder. Surgical resection was scheduled with consultation to [facility] for va operative cystoscopy and bilateral ureter stent placement. The patient was deemed suitable for primary resection if the va colic abscess was controlled during the bowel resection. On 12/16/17, patient presented for exploratory celiotomy, sigmoid colectomy along with preoperative cystoscopy and bilateral ureteral stent placement. [facility] placed a epidural catheter prior to surgery. This provided excellent pain control for the first 3 days postop. The patient tolerated the procedure well which was completed without complication or incident. The va colic abscess was controlled during the resection. The patient demonstrated satisfactory recovery following surgery. Diet was initiated on postoperative day 2 and advanced as tolerated. The epidural catheter was removed on postoperative day 3 and converted to oral analgesics. Operative pathology demonstrated sigmoid diverticulosis with chronic diverticulitis; appendix demonstrated no diagnostic abnormalities. A pericolic abscess adjacent to the dome of the bladder was encountered at the time of surgery - cultures yielded Strep anginosus and Raoultella planticola for which patient was treated with Ceftriaxone IV. On postoperative day 5, the patient was afebrile, feeling well, tolerating regular diet. He had no significant abdominal pain or tenderness. He was deemed in good condition, satisfactory for discharge home. Condition on discharge: Good Discharge instructions: Patient may resume home medications Regular diet Activity as tolerated; lifting limited the less than 20 pounds Follow-up my office, 12/28/17 Tylenol, ibuprofen, Motrin, Advil, etc. as needed for pain Prescription for Percocet 5/325, #8, one every 6 hours as needed for pain not relieved by [id number] medications. Discharge diagnoses: Acute sigmoid diverticulitis with pericolic abscess Sigmoid diverticulosis Appendix demonstrating no diagnostic abnormalities Urinary bladder thickening and inflammation related to the adjacent pericolic abscess - expected to resolve with resolution/resection of the abscess Hypertension Hypercholesterolemia Fibromyalgia Transient postoperative hypokalemia - corrected with supplementation Objective Vital Signs - Last 8 Hours Temp Pulse Resp BP Pulse Ox 12/21/17 12:01 98.5 F 86 18 104/67 94 12/21/17 07:25 95 12/21/17 07:02 98.5 F 81 18 130/73 95 Intake and Output 12/20/17 12/21/17 12/21/17 23:59 07:59 15:59 Intake Total 400 / 400 240 / 240 Balance 400 / 400 240 / 240 Intake: Oral 400 / 400 240 / 240 Other: Meal Breakfast Percent of Meal Consumed 100% # Voids 4 Weight 89.499 kg Patient Weight 12/21/17 23:59 Weight 89.499 kg - Labs 12/21/17 06:00 12/20/17 05:27 - VTE Documentation of Mechanical Device: Intermittent pneumatic compression device Consult Discharge Plan - Plan Referrals: Yan Watts MD [Non-Partnered Physician] - 12/28/17 1:30 pm Marilyn Quijano MD [Primary Care Provider] - 12/28/17 10:00 am
--- NOTE | 2017-12-21 13:01 | Discharge Summary ---
Outpatient Proc Discharge Plan - Plan Instructions: Diverticulitis (DC) Additional Instructions: Regular diet Activity as tolerated; lifting limited to less than 20 pounds Patient may shower, wash incision with soap and water Patient to resume home meds Tylenol, ibuprofen, Motrin, Advil, etc. as needed for pain Prescription provided for Percocet 5/325, #8, one every 6 hours as needed for pain not relieved by [id number] medications Follow-up my office, 12/28/17. Prescriptions: OxyCODONE/APAP 5/325 [Percocet 5/325 MG] 1 each PO Q6H PRN 2 Days #8 tablet PRN Reason: Pain Home Medications: Lisinopril/Hydrochlorothiazide [Zestoretic 20-25 mg Tablet] 1 tab PO DAILY 10/17 [History] Simvastatin [Zocor] 20 mg PO HS 10/17/17 [History] Tramadol HCl [Ultram] 50 mg PO QID PRN 10/17/17 [History] amLODIPine [Norvasc] 5 mg PO DAILY 10/17/17 [History] Allopurinol [Zyloprim 100 MG] 200 mg PO DAILY 10/18/17 [History] Aspirin/Acetaminophen/Caffeine [Excedrin Extra Strength Caplet] 2 tab PO BID PRN 12/16/17 [History] OxyCODONE/APAP 5/325 [Percocet 5/325 MG] 1 each PO Q6H PRN 2 Days #8 tablet [Rx]
--- NOTE | 2017-12-28 20:41 | Operative Note ---
Date of procedure: 12/16/17 Pre-op diagnosis: stents needed for Gen surgery procedure Post-op diagnosis: same Procedure: Cystoscopy with bilateral temporary ureteral stent placement Anesthesia: GETA Surgeon: Mendoza Cardoza Was there an content assistant present: No Estimated blood loss (cc): 0 Specimen: None Condition: stable Disposition: PACU Procedure in Detail: . PROCEDURE IN DETAIL: Patient was taken back to the operating room, positioned supine on the operating table. Anesthesia was applied without complication. They were moved into dorsal lithotomy. Careful attention was maintained to cushion all pressure points for patient's safety. They were prepped and draped in sterile fashion. Time-out was performed with the proper patient and procedure. A 21-Cuban rigid cystoscope was inserted into the bladder without difficulty. Systematic examination of bladder mucosal edema at the dome. Bilateral ureteral orifice ease were cannulated using a 5-Cuban Flexi-Tip ureteral catheter. They passed until resistance was met. Chávez catheter was placed. They were then threaded into the catheter using the catheter attachment device. no complications.
== END 2017-12-21 14:10 | disposition home or self-care (01) | DRG 330 ==
LOC: SAMDAY 06:27 → 3NENU 13:42 → 3BNU 14:00
PROVIDERS: ADMIT Surgery; ATTEND Surgery